=== PATIENT | male | born 1970 | race African-American/Black ===

== ENCOUNTER 2018-01-06 12:46 | Inpatient (IN) | payer MEDICAID ==
[~2018-01-06] VITALS: Ht 180.3 cm; Wt 81.0 kg
[2018-01-06] VITALS (8 sets, daily range): BP systolic 164–226; BP diastolic 93–128; PULSE 75–96; RESP 16–18; TEMP 97.9–98.5; O2SAT 97–100
[2018-01-06] MEDS ORDERED: LABETALOL HCL 100 MG/20 ML VIAL IV PUSH ONE (13:45)
--- NOTE | 2018-01-06 13:48 | RADRPT ---
EXAM DATE: 01/06/2018 1:36 PM EDT AGE/SEX: 47 years / Male INDICATIONS: Short of breath. CLINICAL DATA: This is the patient's initial encounter. Patient reports that signs and symptoms have been present for 1 day and indicates a pain score of 0/10. MEDICAL/SURGICAL HISTORY: . high blood pressure, diabetic None. COMPARISON: No prior exams available for comparison. FINDINGS: A single AP view of the chest demonstrates the lungs to be symmetrically aerated without evidence of mass, infiltrate or effusion. The cardiomediastinal contours are unremarkable. Osseous structures a re intact. CONCLUSION: No acute cardiopulmonary process. Electronically signed by: Hari Rosen MD 01/06/2018 1:47 PM EDT
[2018-01-06 13:49] LABS: AUTOMATED NEUTROPHIL # 4.3 TH/MM3 (1.8-7.7); BASOPHIL % 0.6 % (0.0-2.0); EOSINOPHIL # 0.1 TH/MM3 (0-0.4); EOSINOPHIL % 1.4 % (0.0-4.0); HEMOGLOBIN 11.8 GM/DL (13.0-17.0); LYMPH % 23.3 % (9.0-44.0); LYMPHOCYTE # 1.4 TH/MM3 (1.0-4.8); MEAN CORPUSCULAR HEMOGLOBIN 26.4 PG (27.0-34.0); MEAN CORPUSCULAR HGB CONC 32.9 % (32.0-36.0); MEAN PLATELET VOLUME 8.4 FL (7.0-11.0); MONO % 4.8 % (0.0-8.0); MONOCYTE # 0.3 TH/MM3 (0-0.9); NEUT % 69.9 % (16.0-70.0); PLATELET COUNT 267 TH/MM3 (150-450); RED BLOOD COUNT 4.49 MIL/MM3 (4.50-5.90); RED CELL DISTRIBUTION WIDTH 12.9 % (11.6-17.2); WHITE BLOOD COUNT 6.2 TH/MM3 (4.0-11.0)
--- NOTE | 2018-01-06 14:00 | PD ---
HPI Chief Complaint: Hypertension Time Seen by Provider: 13:05 Travel History International Travel<30 days: No Contact w/Intl Traveler<30days: No Traveled to known affect area: No History of Present Illness HPI 47-year-old male that presents to the ED for evaluation of hypertension and blurry vision as well as possible diabetes. Per patient has been having blurry vision for about 1 month. Per patient he went to an eye doctor 2 days ago and the eye doctor recommended that he follows with primary care doctor as apparently his blood pressure was elevated and he suspected that his sugars were also elevated. He cannot do anything for him until this was addressed. He apparently went to an urgent care today and urgent care person told him to come here to get evaluated as his blood pressure was still very high. Apparently blood pressure over there was in the 230 systolic and was given to clonidine 0.2 mg with minimal improvement of the blood pressure. Patient complains of no chest pain but does complain of some shortness of breath with exertion when he exerts himself. He attributes this more to working a lot. He is also noted that his legs have been becoming more swollen for the past 3 weeks. No injury or trauma. No recent travel. No pain with it. She denies any chest pain per se. He states that he was diagnosed with high sugars in the past and took medication for it but per patient he took himself out of the medication as he felt like he was getting better and his sugars were under control. Unclear if he did discuss this with his doctor before he did this. Apparently he has not really had much medical care since. He used to be on blood pressure medications in the past as well but has not taken any. He has no allergies to medication. No other medical issues. No back or neck pain. States no loss of vision but blurry vision. PFSH Past Medical History Diabetes: Yes Patient Takes Glucophage: No Hypertension: Yes Past Surgical History Surgical History: No Previous Surgery Social History Alcohol Use: No Tobacco Use: No Substance Use: No Allergies-Medications (Allergen,Severity, Reaction): Coded Allergies: No Known Allergies (Unverified , 01/06/18) Review of Systems Except as stated in HPI: all other systems reviewed are Neg Physical Exam Narrative GENERAL: SKIN: Warm and dry. HEAD: Atraumatic. Normocephalic. EYES: Pupils equal and round. No scleral icterus. No injection or drainage. ENT: No nasal bleeding or discharge. Mucous membranes pink and moist. Tongue is midline. No uvula deviation NECK: Trachea midline. No JVD. CARDIOVASCULAR: Regular rate and rhythm. No murmurs, S3, S4. RESPIRATORY: No accessory muscle use. Clear to auscultation. Breath sounds equal bilaterally. GASTROINTESTINAL: Abdomen soft, non-tender, nondistended. Hepatic and splenic margins not palpable. MUSCULOSKELETAL: Extremities without clubbing, cyanosis, or edema. No obvious deformities. Full range of motion of the upper and lower extremities bilaterally. 2+ pulses bilaterally. Patient does have 2+ pitting edema on the lower extremities bilaterally. NEUROLOGICAL: Awake and alert. No obvious cranial nerve deficits. Motor grossly within normal limits. Five out of 5 muscle strength in the arms and legs. Normal speech. PSYCHIATRIC: Appropriate mood and affect; insight and judgment normal. Data Data Last Documented VS Vital Signs Date Time Temp Pulse Resp B/P (MAP) Pulse Ox O2 Delivery O2 Flow Rate FiO2 01/06/18 14:24 80 18 181/103 (129) 100 Room Air 01/06/18 13:19 98.5 Orders Orders Electrocardiogram (01/06/18 13:15) Complete Blood Count With Diff (01/06/18 13:15) Basic Metabolic Panel (Bmp) (01/06/18 13:15) Ckmb (Isoenzyme) Profile (01/06/18 13:15) Troponin I (01/06/18 13:15) B-Type Natriuretic Peptide (01/06/18 13:15) Magnesium (Mg) (01/06/18 13:15) Thyroid Stimulating Hormone (01/06/18 13:15) Chest, Single Ap (01/06/18 13:15) Iv Access Insert/Monitor (01/06/18 13:15) Ecg Monitoring (01/06/18 13:15) Oximetry (01/06/18 13:15) Us Leg Venous Doppler Bilat (01/06/18 ) Labetalol Inj (Trandate Inj) (01/06/18 13:45) CKMB (01/06/18 13:30) CKMB% (01/06/18 13:30) Aspirin (Aspirin) (01/06/18 14:15) Admit Order (Ed Use Only) (01/06/18 14:58) Labs Laboratory Tests Test 01/06/18 13:30 White Blood Count 6.2 TH/MM3 Red Blood Count 4.49 MIL/MM3 Hemoglobin 11.8 GM/DL Hematocrit 36.0 % Mean Corpuscular Volume 80.0 FL Mean Corpuscular Hemoglobin 26.4 PG Mean Corpuscular Hemoglobin Concent 32.9 % Red Cell Distribution Width 12.9 % Platelet Count 267 TH/MM3 Mean Platelet Volume 8.4 FL Neutrophils (%) (Auto) 69.9 % Lymphocytes (%) (Auto) 23.3 % Monocytes (%) (Auto) 4.8 % Eosinophils (%) (Auto) 1.4 % Basophils (%) (Auto) 0.6 % Neutrophils # (Auto) 4.3 TH/MM3 Lymphocytes # (Auto) 1.4 TH/MM3 Monocytes # (Auto) 0.3 TH/MM3 Eosinophils # (Auto) 0.1 TH/MM3 Basophils # (Auto) 0.0 TH/MM3 CBC Comment DIFF FINAL Differential Comment Blood Urea Nitrogen 21 MG/DL Creatinine 1.89 MG/DL Random Glucose 211 MG/DL Calcium Level 8.5 MG/DL Magnesium Level 2.0 MG/DL Sodium Level 142 MEQ/L Potassium Level 3.3 MEQ/L Chloride Level 107 MEQ/L Carbon Dioxide Level 29.1 MEQ/L Anion Gap 6 MEQ/L Estimat Glomerular Filtration Rate 38 ML/MIN Total Creatine Kinase 114 U/L Creatine Kinase MB 2.1 NG/ML Troponin I 0.20 NG/ML Thyroid Stimulating Hormone 3rd Gen 0.838 uIU/ML MDM Medical Decision Making Medical Screen Exam Complete: Yes Emergency Medical Condition: Yes Medical Record Reviewed: Yes Interpretation(s) CBC & BMP Diagram 01/06/18 13:30 Calcium Level 8.5, Magnesium Level 2.0 Last Impressions Chest X-Ray 01/06/18 1315 Signed Impressions: CONCLUSION: No acute cardiopulmonary process. Lower Extremity Ultrasound 01/06/18 0000 Signed Impressions: CONCLUSION: No DVT. troponin elevated at 0.20 CK negative EKG shows sinus rhythm with no sign of acute ischemia and arrhythmia read by me and attending. Differential Diagnosis Diabetes versus noncompliant diabetic versus hypertensive urgency versus hypertensive crisis versus CHF versus DVTs versus pitting edema versus ACS Narrative Course 47-year-old male who presents to the ED for evaluation of high blood pressure, lower leg edema, possible diabetic, blurred vision. Patient was properly examined and was found to have signs and symptoms of unclear etiology. BP is definitely elevated even after given clonidine 2 in the urgent care. At this time patient will be started on IV labetalol as well as labs and imaging will be ordered. Ultrasound was ordered. We will check sugars. Labs and imaging showed positive troponin. Elevated blood sugars while in the 200s. This time her condition is for admission further evaluation as patient has never had positive troponin and no history of heart disease. I suspect positive troponin may be related more to the elevated blood pressure. Patient's blood pressure became down with labetalol. My attending recommends admission for further evaluation. Dr. Han evaluated the patient herself. Patient has no chest pain but he was still given aspirin. He will need further cardiac workup. He agrees to admission. Case discussed with Dr. Bruner who agrees to admission to his service. Diagnosis Primary Impression: Hypertensive emergency Additional Impressions: Elevated troponin I level Diabetes Qualified Codes: E11.8 - Type 2 diabetes mellitus with unspecified complications Admitting Information Admitting Physician Requests: Admit Hardeep Rodriguez Jan 06, 2018 14:00
[2018-01-06 14:04] LABS: BICARBONATE 29.1 MEQ/L (21.0-32.0); BLOOD UREA NITROGEN 21 MG/DL (7-18); CALCIUM 8.5 MG/DL (8.5-10.1); CHLORIDE 107 MEQ/L (98-107); CREATININE 1.89 MG/DL (0.60-1.30); GLOMERULAR FILTRATION RATE 38 ML/MIN (>89); GLUCOSE,RANDOM 211 MG/DL (74-106); SODIUM (NA) 142 MEQ/L (136-145)
[2018-01-06] MEDS ORDERED: ASPIRIN 325 MG TAB PO ONE (14:15)
--- NOTE | 2018-01-06 14:31 | RADRPT ---
EXAM DATE: 01/06/2018 2:28 PM EDT AGE/SEX: 47 years / Male INDICATIONS: Bilateral leg swelling. CLINICAL DATA: This is the patient's initial encounter. Patient reports that signs and symptoms have been present for 1 day and indicates a pain score of 1/10. MEDICAL/SURGICAL HISTORY: Hypertension. Diabetes. None. COMPARISON: No prior exams available for comparison. TECHNIQUE: Venous ultrasound of both lower extremities was performed from the inguinal ligament to t he proximal calf. Real-time, color Doppler and spectral tracing, compression and augmentation techni ques were used. FINDINGS: Right Leg: Normal compression of the deep venous system from the inguinal region to the proximal sera f. No echogenic clot is seen. Normal response of the venous system to augmentation and respiration. Left Leg: Normal compression of the deep venous system from the inguinal region to the proximal calf . No echogenic clot is seen. Normal response of the venous system to augmentation and respiration. Other: None. CONCLUSION: No DVT. Electronically signed by: Hari Rosen MD 01/06/2018 2:30 PM EDT
--- NOTE | 2018-01-06 14:40 | PD ---
Physical Exam Date Seen by Provider: Jan 06, 2018 Narrative This patient presents for evaluation of hypertension and diabetes. He has a history of both but is noncompliant with medications. Data Data Last Documented VS Vital Signs Date Time Temp Pulse Resp B/P (MAP) Pulse Ox O2 Delivery O2 Flow Rate FiO2 01/06/18 14:24 80 18 181/103 (129) 100 Room Air 01/06/18 13:19 98.5 Orders Orders Electrocardiogram (01/06/18 13:15) Complete Blood Count With Diff (01/06/18 13:15) Basic Metabolic Panel (Bmp) (01/06/18 13:15) Ckmb (Isoenzyme) Profile (01/06/18 13:15) Troponin I (01/06/18 13:15) B-Type Natriuretic Peptide (01/06/18 13:15) Magnesium (Mg) (01/06/18 13:15) Thyroid Stimulating Hormone (01/06/18 13:15) Chest, Single Ap (01/06/18 13:15) Iv Access Insert/Monitor (01/06/18 13:15) Ecg Monitoring (01/06/18 13:15) Oximetry (01/06/18 13:15) Us Leg Venous Doppler Bilat (01/06/18 ) Labetalol Inj (Trandate Inj) (01/06/18 13:45) CKMB (01/06/18 13:30) CKMB% (01/06/18 13:30) Aspirin (Aspirin) (01/06/18 14:15) Labs Laboratory Tests Test 01/06/18 13:30 White Blood Count 6.2 TH/MM3 Red Blood Count 4.49 MIL/MM3 Hemoglobin 11.8 GM/DL Hematocrit 36.0 % Mean Corpuscular Volume 80.0 FL Mean Corpuscular Hemoglobin 26.4 PG Mean Corpuscular Hemoglobin Concent 32.9 % Red Cell Distribution Width 12.9 % Platelet Count 267 TH/MM3 Mean Platelet Volume 8.4 FL Neutrophils (%) (Auto) 69.9 % Lymphocytes (%) (Auto) 23.3 % Monocytes (%) (Auto) 4.8 % Eosinophils (%) (Auto) 1.4 % Basophils (%) (Auto) 0.6 % Neutrophils # (Auto) 4.3 TH/MM3 Lymphocytes # (Auto) 1.4 TH/MM3 Monocytes # (Auto) 0.3 TH/MM3 Eosinophils # (Auto) 0.1 TH/MM3 Basophils # (Auto) 0.0 TH/MM3 CBC Comment DIFF FINAL Differential Comment Blood Urea Nitrogen 21 MG/DL Creatinine 1.89 MG/DL Random Glucose 211 MG/DL Calcium Level 8.5 MG/DL Magnesium Level 2.0 MG/DL Sodium Level 142 MEQ/L Potassium Level 3.3 MEQ/L Chloride Level 107 MEQ/L Carbon Dioxide Level 29.1 MEQ/L Anion Gap 6 MEQ/L Estimat Glomerular Filtration Rate 38 ML/MIN Total Creatine Kinase 114 U/L Creatine Kinase MB 2.1 NG/ML Troponin I 0.20 NG/ML Thyroid Stimulating Hormone 3rd Gen 0.838 uIU/ML MDM Supervised Visit with KATHLEEN: Yes Narrative Course I, Dr. Han, have reviewed the advance practice practitioner's documentation and am in agreement, met with the patient face to face, made the diagnosis, and the medical decision making was done by me. *My assessment and Findings: Vital Signs Date Time Temp Pulse Resp B/P (MAP) Pulse Ox O2 Delivery O2 Flow Rate FiO2 01/06/18 14:24 80 18 181/103 (129) 100 Room Air 01/06/18 13:19 91 18 96 Room Air 01/06/18 13:19 98.5 91 18 218/125 (156) 97 Room Air 01/06/18 12:52 97.9 96 16 226/128 (160) 99 CBC & BMP Diagram 01/06/18 13:30 Calcium Level 8.5, Magnesium Level 2.0 trop 0.20 This patient will need to be admitted for further evaluation. His troponin could be elevated secondary to renal insufficiency. Mali Han MD Jan 06, 2018 14:40
[2018-01-06] MEDS ORDERED: NALOXONE HCL 0.4 MG/ML AMP IV PUSH PRN (15:30)
[2018-01-06] MEDS ORDERED: SODIUM CHLORIDE 0.9% FLUSH 10 ML FLUSH IV FLUSH PRN (15:30)
[2018-01-06] MEDS ORDERED: NIFEdipine 30 MG SUSTAINED RELEASE TAB PO ONE (15:30)
[2018-01-06] MEDS ORDERED: POTASSIUM CHLORIDE 20 MEQ CONTROLLED RELEASE TAB PO ONE (15:30)
[2018-01-06] MEDS ORDERED: DEXTROSE 50% IN WATER 50 ML VIAL(D50) IV PUSH PRN (15:30)
[2018-01-06] MEDS ORDERED: ACETAMINOPHEN 325 MG TAB PO PRN ×2 (15:30)
[2018-01-06] MEDS ORDERED: GLUCAGON 1 MG/ML VIAL OTHER PRN (15:30)
--- NOTE | 2018-01-06 15:43 | HHI.HP ---
[facility] Unknown Admission Diagnosis hypertensive emergency, positive troponin, NSTEMI? Diagnoses: Chief Complaint: Vision changes Travel History International Travel<30 Days: No Contact w/Intl Traveler <30 Da: No Traveled to Known Affected Are: No History of Present Illness The patient is a 47-year-old male the past medical history of diabetes and hypertension who is presenting to the hospital with vision changes. He says for the past month or so he has experienced blurry vision, worse in the left eye. He says his right eye has been acting up over the past 2 days. He denies any associated headaches. He went to an eye doctor yesterday who diagnosed him with diabetic retinopathy. He went to an urgent care clinic today who referred him to the hospital for further evaluation. The patient's blood pressure has been very high while he was in the doctor's offices. He has been on blood pressure medications in the past including lisinopril and hydrochlorothiazide. He has also been on diabetic medication in the past. The patient states his legs have been swollen for the past 2 weeks. He says it has happened to him in the past as well. He denies any chest pain or shortness of breath. He does endorse feeling tired when he undergoes activities. He says he has had a heart murmur since childhood. He says he does not typically see doctors. He has not been taking any medications recently. He said the urgent care also diagnosed him with a sinusitis. Review of Systems Except as stated in HPI: all other systems reviewed are Neg Past Family Social History Past Medical History Diabetes Hypertension Past Surgical History Denies Allergies: Coded Allergies: No Known Allergies (Unverified , 01/06/18) Family History DM HTN Social History The pt does not smoke. He has rare alcohol intake. Physical Exam Vital Signs Vital Signs Date Time Temp Pulse Resp B/P (MAP) Pulse Ox O2 Delivery O2 Flow Rate FiO2 01/06/18 14:24 80 18 181/103 (129) 100 Room Air 01/06/18 13:19 91 18 96 Room Air 01/06/18 13:19 98.5 91 18 218/125 (156) 97 Room Air 01/06/18 12:52 97.9 96 16 226/128 (160) 99 Physical Exam GENERAL: Resting comfortably. SKIN: Warm and dry. HEAD: Atraumatic. Normocephalic. EYES: Pupils equal and round. No scleral icterus. No injection or drainage. ENT: No nasal bleeding or discharge. Mucous membranes pink and moist. Tongue is midline. No uvula deviation NECK: Trachea midline. No JVD. CARDIOVASCULAR: Regular rate and rhythm. Harsh systolic murmur appreciated in the LLSB. RESPIRATORY: No accessory muscle use. Clear to auscultation. Breath sounds equal bilaterally. GASTROINTESTINAL: Abdomen soft, non-tender, nondistended. Hepatic and splenic margins not palpable. MUSCULOSKELETAL: Extremities without clubbing, cyanosis. 2+ pulses bilaterally. Patient does have 1-2+ pitting edema on the lower extremities bilaterally. NEUROLOGICAL: Awake and alert. No obvious cranial nerve deficits. Motor grossly within normal limits. Five out of 5 muscle strength in the arms and legs. Normal speech. Laboratory Laboratory Tests Test 01/06/18 13:30 White Blood Count 6.2 Red Blood Count 4.49 Hemoglobin 11.8 Hematocrit 36.0 Mean Corpuscular Volume 80.0 Mean Corpuscular Hemoglobin 26.4 Mean Corpuscular Hemoglobin Concent 32.9 Red Cell Distribution Width 12.9 Platelet Count 267 Mean Platelet Volume 8.4 Neutrophils (%) (Auto) 69.9 Lymphocytes (%) (Auto) 23.3 Monocytes (%) (Auto) 4.8 Eosinophils (%) (Auto) 1.4 Basophils (%) (Auto) 0.6 Neutrophils # (Auto) 4.3 Lymphocytes # (Auto) 1.4 Monocytes # (Auto) 0.3 Eosinophils # (Auto) 0.1 Basophils # (Auto) 0.0 CBC Comment DIFF FINAL Differential Comment Blood Urea Nitrogen 21 Creatinine 1.89 Random Glucose 211 Calcium Level 8.5 Magnesium Level 2.0 Sodium Level 142 Potassium Level 3.3 Chloride Level 107 Carbon Dioxide Level 29.1 Anion Gap 6 Estimat Glomerular Filtration Rate 38 Total Creatine Kinase 114 Creatine Kinase MB 2.1 Troponin I 0.20 Thyroid Stimulating Hormone 3rd Gen 0.838 Result Diagram: 01/06/18 1330 01/06/18 1330 Imaging Last Impressions Chest X-Ray 01/06/18 1315 Signed Impressions: CONCLUSION: No acute cardiopulmonary process. Lower Extremity Ultrasound 01/06/18 0000 Signed Impressions: CONCLUSION: No DVT. Caprini VTE Risk Assessment Caprini VTE Risk Assessment: Mod/High Risk (score >= 2) Caprini Risk Assessment Model Point Value = 1 Point Value = 2 Point Value = 3 Point Value = 5 Age 41-60 Minor surgery BMI > 25 kg/m2 Swollen legs Varicose veins or History of unexplained or recurrent spontaneous Oral contraceptives or hormone replacement Sepsis (< 1 month) Serious lung disease, including pneumonia (< 1 month) Abnormal pulmonary function Acute myocardial infarction Congestive heart failure (< 1 month) History of inflammatory bowel disease Medical patient at bed rest Age 61-74 Arthroscopic surgery Major open surgery (> 45 min) Laparoscopic surgery (> 45 min) Malignancy Confined to bed (> 72 hours) Immobilizing plaster cast Central venous access Age >= 75 History of VTE Family history of VTE Factor V Leiden Prothrombin [id number] Lupus anticoagulant Anticardiolipin antibodies Elevated serum homocysteine Heparin-induced thrombocytopenia Other congenital or acquired thrombophilia Stroke (< 1 month) Elective arthroplasty Hip, pelvis, or leg fracture Acute spinal cord injury (< 1 month) Prophylaxis Regimen Total Risk Factor Score Risk Level Prophylaxis Regimen 0-1 Low Early ambulation 2 Moderate Order ONE of the following: *Sequential Compression Device (SCD) *Heparin 5000 units SQ BID 3-4 Higher Order ONE of the following medications: *Heparin 5000 units SQ TID *Enoxaparin/Lovenox 40 mg SQ daily (WT < 150 kg, CrCl > 30 mL/min) *Enoxaparin/Lovenox 30 mg SQ daily (WT < 150 kg, CrCl > 10-29 mL/min) *Enoxaparin/Lovenox 30 mg SQ BID (WT < 150 kg, CrCl > 30 mL/min) AND/OR *Sequential Compression Device (SCD) 5 or more Highest Order ONE of the following medications: *Heparin 5000 units SQ TID (Preferred with Epidurals) *Enoxaparin/Lovenox 40 mg SQ daily (WT < 150 kg, CrCl > 30 mL/min) *Enoxaparin/Lovenox 30 mg SQ daily (WT < 150 kg, CrCl > 10-29 mL/min) *Enoxaparin/Lovenox 30 mg SQ BID (WT < 150 kg, CrCl > 30 mL/min) AND *Sequential Compression Device (SCD) Assessment and Plan Assessment and Plan Hypertensive emergency/ elevated troponin/ leg swelling The pt's blood pressure has been elevated over 200. He has had associated blurry vision. Troponin elevated at 0.2. EKG without acute ischemia. S/p IV labetalol in the ED. LE US negative for DVT. - start Procardia XL 60 mg daily. - clonidine as needed. - echocardiogram pending. - ezio stockings. - trend trops and EKGs. - telemetry. - dietary consult. - check a lipid profile. DM/ blurry vision Recently diagnosed with diabetic retinopathy. - start insulin sliding scale. - check A1c. - consult software educator. Acute renal failure Likely s/t underlying HTN, DM or both. - check UA. - calculate FENa. - renal US. - hold off on fluids until cardiac function has been assessed. Hypokalemia K level 3.3. - KCl 20 meq PO x 1. PPx: Heparin Discussed Condition With PtIgor Physician Certification 2 Midnight Certification Type: Admission for Inpatient Services Order for Inpatient Services The services are ordered in accordance with Medicare regulations or non- Medicare payer requirements, as applicable. In the case of services not specified as inpatient-only, they are appropriately provided as inpatient services in accordance with the 2-midnight benchmark. Estimated LOS (days): 2 days is the estimated time the patient will need to remain in the hospital, assuming treatment plan goals are met and no additional complications. Post-Hospital Plan: Home Reji Bruner DO Jan 06, 2018 15:43
[2018-01-06] MEDS: HEPARIN SODIUM - SQ 10,000 UNITS/ML VIAL SQ SCH (16:00)
[2018-01-06] MEDS: INSULIN ASPART SUPPLEMENTAL SCALE SQ SCH ×2 (17:00→22:49)
[2018-01-06 17:25] LABS: HEMOGLOBIN A1C 5.7 % (4.3-6.0)
--- NOTE | 2018-01-06 18:35 | RADRPT ---
EXAM DATE: 01/06/2018 6:30 PM EDT AGE/SEX: 47 years / Male INDICATIONS: Increased BUN/Creatnine. CLINICAL DATA: This is the patient's initial encounter. Patient reports that signs and symptoms have been present for 1 day and indicates a pain score of 0/10. MEDICAL/SURGICAL HISTORY: . Hypertension. Diabetes. None. COMPARISON: None. MEASUREMENTS: Right Kidney:__12.2 x 6.1 x 4.3 cm Left Kidney:__12.4 x 5.5 x 5.7 cm FINDINGS: Right Kidney: Hyperechoic. 9 mm simple cyst exophytic from the lower pole. No mass or hydronephrosis. Left Kidney: Hyperechoic.. No mass or hydronephrosis. Bladder: Within normal limits given the degree of distension. Other: Left pleural effusion. CONCLUSION: 1. Sonographic findings consistent with medical renal disease. No obstruction. 2. Left pleural effusion. Electronically signed by: Kin Troy MD 01/06/2018 6:34 PM EDT
[2018-01-06] MEDS: SODIUM CHLORIDE 0.9% FLUSH 10 ML FLUSH IV FLUSH SCH (21:44)
[2018-01-06 21:56] LABS: CHOLESTEROL/ HDL RATIO 4.57 RATIO; HDL CHOLESTEROL 38.9 MG/DL (40.0-60.0); TROPONIN I 0.16 NG/ML (0.02-0.05)
[2018-01-06 22:13] LABS: CREATININE, RANDOM URINE 158.7 MG/DL
[2018-01-06 22:16] LABS: BACTERIA, URINE OCC /hpf; BILIRUBIN, URINE NEG (NEG); BLOOD, URINE MOD (NEG); GLUCOSE,URINE 50 mg/dL (NEG); HYALINE CAST, URINE 3 /lpf (RARE); KETONE, URINE NEG (NEG); MUCUS URINE FEW /lpf (OCC); NITRITE,URINE NEG (NEG); SQUAMOUS EPITHELIAL CELL URINE <1 /hpf (0-5); URINE COLOR Amber (YELLW/STRAW); URINE LEUKOCYTE ESTERASE NEG (NEG)
[2018-01-07] VITALS (8 sets, daily range): BP systolic 157–195; BP diastolic 10–104; PULSE 85–101; RESP 16–18; TEMP 97.8–98.4; O2SAT 97–99
[2018-01-07 07:50] LABS: AUTOMATED NEUTROPHIL # 3.8 TH/MM3 (1.8-7.7); BASOPHIL % 0.4 % (0.0-2.0); EOSINOPHIL # 0.1 TH/MM3 (0-0.4); EOSINOPHIL % 2.2 % (0.0-4.0); HEMOGLOBIN 11.3 GM/DL (13.0-17.0); LYMPHOCYTE # 1.6 TH/MM3 (1.0-4.8); MEAN CELL VOLUME 79.6 FL (80.0-100.0); MEAN CORPUSCULAR HEMOGLOBIN 27.2 PG (27.0-34.0); MEAN CORPUSCULAR HGB CONC 34.1 % (32.0-36.0); MEAN PLATELET VOLUME 8.3 FL (7.0-11.0); MONO % 5.9 % (0.0-8.0); MONOCYTE # 0.3 TH/MM3 (0-0.9); NEUT % 64.5 % (16.0-70.0); PLATELET COUNT 252 TH/MM3 (150-450); RED BLOOD COUNT 4.14 MIL/MM3 (4.50-5.90); RED CELL DISTRIBUTION WIDTH 12.9 % (11.6-17.2); WHITE BLOOD COUNT 5.9 TH/MM3 (4.0-11.0)
[2018-01-07] MEDS: INSULIN ASPART SUPPLEMENTAL SCALE SQ SCH ×4 (08:00→21:00)
[2018-01-07 08:26] LABS: ALBUMIN 2.4 GM/DL (3.4-5.0); AST (GOT) 15 U/L (15-37); BICARBONATE 29.5 MEQ/L (21.0-32.0); BLOOD UREA NITROGEN 21 MG/DL (7-18); CALCIUM 8.5 MG/DL (8.5-10.1); CHLORIDE 110 MEQ/L (98-107); GLOMERULAR FILTRATION RATE 49 ML/MIN (>89); GLUCOSE,RANDOM 120 MG/DL (74-106); SODIUM (NA) 146 MEQ/L (136-145)
[2018-01-07 08:29] LABS: ALKALINE PHOSPHATASE 61 U/L (45-117); ALT (GPT) 27 U/L (12-78); TOTAL BILIRUBIN ADULT 0.5 MG/DL (0.2-1.0); TOTAL PROTEIN 5.4 GM/DL (6.4-8.2)
[2018-01-07] MEDS: NIFEdipine 60 MG SUSTAINED RELEASE TAB PO SCH (08:33)
[2018-01-07] MEDS: HEPARIN SODIUM - SQ 10,000 UNITS/ML VIAL SQ SCH ×4 (08:34→23:24)
[2018-01-07] MEDS: SODIUM CHLORIDE 0.9% FLUSH 10 ML FLUSH IV FLUSH SCH ×2 (08:34→23:21)
--- NOTE | 2018-01-07 09:20 | EKG ---
Date Performed: 01/06/2018 Time Performed: 14:25:21 PTAGE: 47 years EKG: Sinus rhythm LEFT ATRIAL ENLARGEMENT LEFT VENTRICULAR HYPERTROPHY AND ST-T CHANGE ABNORMAL ECG NO PREVIOUS TRACING DOCTOR: Da Caldera Interpretating Date/Time 01/07/2018 09:15:13
--- NOTE | 2018-01-07 09:21 | EKG ---
Date Performed: 01/07/2018 Time Performed: 01:34:34 PTAGE: 47 years EKG: Sinus rhythm Possible left atrial abnormality LVH with secondary repolarization abnormality Inferior/lateral ST-T changes may be due to hypertrophy and/or ischemia Abnormal ECG Since the PREVIOUS TRACING , no significant change noted PREVIOUS TRACING DOCTOR: Da Caldera Interpretating Date/Time 01/07/2018 09:16:24
--- NOTE | 2018-01-07 09:22 | EKG ---
Date Performed: 01/06/2018 Time Performed: 19:39:20 PTAGE: 47 years EKG: Sinus rhythm POSSIBLE LEFT ATRIAL ENLARGEMENT LEFT VENTRICULAR HYPERTROPHY AND ST-T CHANGE ABNORMAL ECG Since the PREVIOUS TRACING , no significant change noted PREVIOUS TRACIN01/06/2018 14.25 DOCTOR: Da Caldera Interpretating Date/Time 01/07/2018 09:16:44
[2018-01-07] MEDS: hydrALAZINE HCL 25 MG TAB PO SCH ×3 (09:31→23:24)
[2018-01-07] MEDS: CARVEDILOL 6.25 MG TAB PO SCH ×2 (09:31→23:23)
[2018-01-07] MEDS: cloNIDine HCL 0.1 MG TAB PO PRN (13:37)
--- NOTE | 2018-01-07 14:16 | HHI.PR ---
Subjective Remarks The patient is a 47-year-old male the past medical history of diabetes and hypertension who is presenting to the hospital with vision changes. He says for the past month or so he has experienced blurry vision, worse in the left eye. He says his right eye has been acting up over the past 2 days. He denies any associated headaches. He went to an eye doctor yesterday who diagnosed him with diabetic retinopathy. He went to an urgent care clinic today who referred him to the hospital for further evaluation. The patient's blood pressure has been very high while he was in the doctor's offices. He has been on blood pressure medications in the past including lisinopril and hydrochlorothiazide. He has also been on diabetic medication in the past. The patient states his legs have been swollen for the past 2 weeks. He says it has happened to him in the past as well. He denies any chest pain or shortness of breath. He does endorse feeling tired when he undergoes activities. He says he has had a heart murmur since childhood. He says he does not typically see doctors. He has not been taking any medications recently. He said the urgent care also diagnosed him with a sinusitis. 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 WEEKEND WILL NEED HELP WITH MEDS AND FOLLOW UPS WILL NEED RX AT DC Objective Vitals Vital Signs Date Time Temp Pulse Resp B/P (MAP) Pulse Ox O2 Delivery O2 Flow Rate FiO2 01/07/18 13:16 97 21 01/07/18 12:00 98.2 101 16 195/101 (132) 98 01/07/18 08:26 88 01/07/18 08:00 97.8 86 18 182/104 (130) 97 01/07/18 08:00 97 Room Air 01/07/18 03:59 92 01/07/18 03:53 Room Air 01/07/18 03:53 98.1 85 16 176/89 (118) 97 01/06/18 23:51 76 01/06/18 23:17 98.0 82 16 164/93 (116) 97 01/06/18 23:17 Room Air 01/06/18 20:28 Room Air 01/06/18 20:28 97.9 83 16 174/97 (122) 99 01/06/18 19:56 21 01/06/18 19:43 78 01/06/18 15:44 75 18 169/94 (119) 98 Room Air 01/06/18 14:24 80 18 181/103 (129) 100 Room Air I/O 01/06/18 01/06/18 01/06/18 01/07/18 01/07/18 01/07/18 07:00 15:00 23:00 07:00 15:00 23:00 Intake Total 720 ml Balance 720 ml Intake Oral 720 ml # Voids 3 # Bowel Movements 0 Result Diagram: 01/07/18 0659 01/07/18 0659 Other Results Laboratory Tests Test 01/06/18 20:07 01/06/18 21:05 01/07/18 01:17 01/07/18 06:59 Troponin I 0.16 NG/ML 0.18 NG/ML Triglycerides Level 156 MG/DL Cholesterol Level 178 MG/DL LDL Cholesterol 108 MG/DL HDL Cholesterol 38.9 MG/DL Cholesterol/HDL Ratio 4.57 RATIO Urine Color Laura Urine Turbidity HAZY Urine pH 5.0 Urine Specific [place] 1.015 Urine Protein >=500 mg/dL Urine Glucose (UA) 50 mg/dL Urine Ketones NEG mg/dL Urine Occult Blood MOD Urine Nitrite NEG Urine Bilirubin NEG Urine Urobilinogen LESS THAN 2 mg/dL Urine Leukocyte Esterase NEG Urine RBC 9 /hpf Urine WBC 4 /hpf Urine Squamous Epithelial Cells <1 /hpf Urine Bacteria OCC /hpf Urine Hyaline Casts 3 /lpf Urine Mucus FEW /lpf Microscopic Urinalysis Comment CULT NOT INDICATED Urine Random Creatinine 158.7 MG/DL Urine Random Sodium 41 MEQ/L White Blood Count 5.9 TH/MM3 Red Blood Count 4.14 MIL/MM3 Hemoglobin 11.3 GM/DL Hematocrit 33.0 % Mean Corpuscular Volume 79.6 FL Mean Corpuscular Hemoglobin 27.2 PG Mean Corpuscular Hemoglobin Concent 34.1 % Red Cell Distribution Width 12.9 % Platelet Count 252 TH/MM3 Mean Platelet Volume 8.3 FL Neutrophils (%) (Auto) 64.5 % Lymphocytes (%) (Auto) 27.0 % Monocytes (%) (Auto) 5.9 % Eosinophils (%) (Auto) 2.2 % Basophils (%) (Auto) 0.4 % Neutrophils # (Auto) 3.8 TH/MM3 Lymphocytes # (Auto) 1.6 TH/MM3 Monocytes # (Auto) 0.3 TH/MM3 Eosinophils # (Auto) 0.1 TH/MM3 Basophils # (Auto) 0.0 TH/MM3 CBC Comment DIFF FINAL Differential Comment Blood Urea Nitrogen 21 MG/DL Creatinine 1.80 MG/DL Random Glucose 120 MG/DL Total Protein 5.4 GM/DL Albumin 2.4 GM/DL Calcium Level 8.5 MG/DL Alkaline Phosphatase 61 U/L Aspartate Amino Transf (AST/SGOT) 15 U/L Alanine Aminotransferase (ALT/SGPT) 27 U/L Total Bilirubin 0.5 MG/DL Sodium Level 146 MEQ/L Potassium Level 3.3 MEQ/L Chloride Level 110 MEQ/L Carbon Dioxide Level 29.5 MEQ/L Anion Gap 7 MEQ/L Estimat Glomerular Filtration Rate 49 ML/MIN Imaging Last Impressions Chest X-Ray 01/06/18 1315 Signed Impressions: CONCLUSION: No acute cardiopulmonary process. Renal Ultrasound 01/06/18 0000 Signed Impressions: CONCLUSION: 1. Sonographic findings consistent with medical renal disease. No obstruction. 2. Left pleural effusion. Lower Extremity Ultrasound 01/06/18 0000 Signed Impressions: CONCLUSION: No DVT. Objective Remarks GENERAL: AWAKE AND ALERT AND ORIENTED X3 TALKATIVE AND COOPERATIVE SKIN: Warm and dry. HEAD: Atraumatic. Normocephalic. EYES: Pupils equal and round. No scleral icterus. No injection or drainage. EOMI ENT: No nasal bleeding or discharge. Mucous membranes pink and moist. TONGUE MIDLINE NECK: Trachea midline. No JVD. SUPPLE CARDIOVASCULAR: Regular rate and rhythm. S1, S2, NO S3 OR S4 RESPIRATORY: No accessory muscle use. Clear to auscultation. Breath sounds equal bilaterally. GASTROINTESTINAL: Abdomen soft, non-tender, nondistended. Hepatic and splenic margins not palpable. MUSCULOSKELETAL: Extremities without clubbing, cyanosis, or edema. No obvious deformities. NEUROLOGICAL: Awake and alert. No obvious cranial nerve deficits. Motor grossly within normal limits. Five out of 5 muscle strength in the arms and legs. Normal speech. PSYCHIATRIC: Appropriate mood and affect; insight and judgment normal. Medications and IVs Current Medications Labetalol HCl (Trandate Inj) 5 mg ONCE ONCE IV PUSH Last administered on at 14:04; Start 01/06/18 at 13:45; Stop 01/06/18 at 13:46; Status DC Aspirin (Aspirin) 325 mg ONCE ONCE PO Last administered on 01/06/18at 14:31; Start 01/06/18 at 14:15; Stop 01/06/18 at 14:16; Status DC Potassium Chloride (KCl) 20 meq ONCE ONCE PO Last administered on 01/06/18at 15 :35; Start 01/06/18 at 15:30; Stop 01/06/18 at 15:31; Status DC Nifedipine (Procardia Xl) 60 mg DAILY PO Last administered on 01/07/18at 08:33; Start 01/07/18 at 09:00 Nifedipine (Procardia Xl) 30 mg ONCE ONCE PO Last administered on 01/06/18at 15 :35; Start 01/06/18 at 15:30; Stop 01/06/18 at 15:31; Status DC Insulin Aspart (NovoLOG SUPPLEMENTAL SCALE) 1 ACHS SLIDING SCALE SQ Last administered on 01/07/18at 12:50; Start 01/06/18 at 17:00 Dextrose (D50w (Vial) Inj) 50 ml UNSCH PRN IV PUSH HYPOGLYCEMIA - SEE COMMENTS ; Start 01/06/18 at 15:30 Glucagon (Glucagon Inj) 1 mg UNSCH PRN OTHER HYPOGLYCEMIA-SEE COMMENTS; Start 01/06/18 at 15:30 Sodium Chloride (NS Flush) 2 ml UNSCH PRN IV FLUSH FLUSH AFTER USING IV ACCESS ; Start 01/06/18 at 15:30 Sodium Chloride (NS Flush) 2 ml BID IV FLUSH Last administered on 01/07/18at 08: 34; Start 01/06/18 at 21:00 Acetaminophen (Tylenol) 650 mg Q4H PRN PO TEMP > 100.4; Start 01/06/18 at 15:30 Heparin Sodium (Porcine) (Heparin Inj) 5,000 units Q8H SQ Last administered on 01/07/18at 08:34; Start 01/06/18 at 16:00 Acetaminophen (Tylenol) 650 mg Q6H PRN PO PAIN SCALE 1 TO 2; Start 01/06/18 at 15:30 Naloxone HCl (Narcan Inj) 0.4 mg UNSCH PRN IV PUSH SEE LABEL COMMENTS; Start at 15:30 Clonidine (Catapres) 0.1 mg Q6H PRN PO SBP> OR = 180, DBP> OR = 100 Last administered on 01/07/18at 13:37; Start 01/06/18 at 15:30 Carvedilol (Coreg) 6.25 mg Q12HR PO Last administered on 01/07/18at 09:31; Start 01/07/18 at 09:15 Hydralazine HCl (Apresoline) 25 mg Q8HR PO Last administered on 01/07/18at 13:35 ; Start 01/07/18 at 09:15 A/P Assessment and Plan Hypertensive emergency/ elevated troponin/ leg swelling The pt's blood pressure has been elevated over 200. He has had associated blurry vision. Troponin elevated at 0.2. EKG without acute ischemia. S/p IV labetalol in the ED. LE US negative for DVT. - start Procardia XL 60 mg daily. - clonidine as needed. - echocardiogram pending. - ezio robbins. - trend trops and EKGs. - telemetry. - dietary consult. - check a lipid profile. ADJUST MEDS ADD HYDRALAZINE AND COREG DM/ blurry vision Recently diagnosed with diabetic retinopathy. - start insulin sliding scale. - check A1c. - consult perioperative educator. MONITOR- PROBABLY PO GLUCOTROL 2.5 BID AT DC DUE TO RENAL FUNCTIONS Acute renal failure Likely s/t underlying HTN, DM or both. - check UA. - calculate FENa. - renal US. - hold off on fluids until cardiac function has been assessed. SLOW IMPROVEMENT MEDICAL RENAL DISEASE PER US OF KIDNEYS Hypokalemia K level 3.3. - KCl 20 meq PO x 1. WILL REPLACE AGAIN NONCOMPLIANCE WITH MEDICATIONS- STOPPED SEEING DRS AND TAKING MEDICATIONS IN PAST PPx: Heparin WILL NEED RX FOR ALL MEDS AT DC AND HELP WITH FOLLOW UPS AT DC AWAIT ECHO Discharge Planning PENDING CARDIAC CLEARANCE Ghassan Juarez DO Jan 07, 2018 14:16
[2018-01-07] MEDS ORDERED: POTASSIUM CHLORIDE 25 MEQ EFFERVESCENT TAB PO ONE (15:00)
--- NOTE | 2018-01-07 15:27 | MB ---
cc: Ej Victor MD DATE: 01/07/2018 REASON FOR CONSULTATION: Evaluation of elevated troponin. HISTORY OF PRESENT ILLNESS: Rolf Weeks is a 47-year-old -Citizen Of [place] from the [facility] who has extremely severe hypertension for which I was consulted because of elevations of his troponin. The patient has a longstanding history of known hypertension. It goes back at least 6 or 7 years. Unfortunately, he has not been taking any medications. He has now got significant evidence for end-organ damage with kidney disease and severe left ventricular hypertrophy on his echo and a mitral regurgitation murmur on his exam. The patient has been noticing a swelling in his legs. He is short of breath with activity. He does not have any angina symptoms; however, does not smoke. His troponins are elevated, but the curve is flat, not indicating any ACS. His blood pressure was recorded here as high as 226/128. He has not had a workup for secondary hypertension causes. I guess there has been some talk of potentially having a sugar issue, but his A1c was only 5.7. PAST MEDICAL HISTORY: Mainly notable for hypertension. PAST SURGICAL HISTORY: He has had no surgeries. SOCIAL HISTORY: From the [facility] and he works in housekeeping. Currently unemployed. He is . He has 2 stepchildren and 1 biological child. Does not smoke, does not drink. Denies drug use. FAMILY HISTORY: Positive for hypertension in his mother and father and there was no heart disease otherwise. REVIEW OF SYSTEMS: He has no bleeding. No syncope. No chest pain. Remaining review of systems negative. PHYSICAL EXAMINATION: GENERAL: Well-developed, well-nourished man in no acute distress. VITAL SIGNS: Blood pressure is severely elevated. See vitals. HEENT: Exam unremarkable. NECK: Shows no bruits. No JVD. CHEST: Clear to auscultation. CARDIOVASCULAR: Exam shows a normal S1 and S2. Regular rate and rhythm. There is a prominent at least grade 2 holosystolic mitral regurgitation murmur at the apex. ABDOMEN: Soft, nontender. EXTREMITIES: Reveal 3+ edema to the knees. LABORATORY DATA: Troponins were 0.20, 0.16 and 0.18, which is flat. Creatinine is elevated at 1.8. Hematocrit was 36 dropped to 33, MCV borderline low at 80 and 79.6. Cholesterol is 178, HDL 38.9, LDL 108, triglycerides 156. He has an abnormal renal ultrasound showing hyperechoic kidneys. Chest x-ray shows no acute disease. Ultrasound of the legs shows no DVT. EKG is markedly abnormal. Sinus rhythm, left atrial abnormality and a striking LVH/LV strain type pattern. IMPRESSION: Suspect longstanding untreated hypertension, which is extremely severe and with significant end-organ damage, mainly with kidney and heart disease. RECOMMENDATIONS: I advised a renal consult for workup for secondary causes and to assist with hypertension management. He will need a 2D echo Doppler study and this will assess his LV function and the mitral regurgitation murmur, see how much cardiomyopathy he has. I would like him to be on an ALBINO inhibitor or angiotensin lea, but I am unsure if this is encarnacion to do with the renal insufficiency and a renal consult might be of help in that regard. I am increasing the carvedilol right up to 25 mg twice a day since his blood pressure is nowhere near controlled currently. The patient was asking if he was going to get to go home today and I told him absolutely not, his problems have not stabilized. Further therapy to be determined. MD FRANK Solitario/ANTWON , 03:01 PM , 03:26 PM
--- NOTE | 2018-01-07 16:54 | MB ---
cc: Christal Valdez MD DATE: 01/07/2018 REASON FOR CONSULTATION: Uncontrolled hypertension and elevated blood pressure and chronic kidney disease, for evaluation. HISTORY OF PRESENT ILLNESS: This is a 47-year-old male known to have hypertension for at least 6 years, not being controlled and not compliant with his medication. We do not have any previous lab work but when the patient came in here it was found that his creatinine was 1.8 and the blood pressure was not controlled. The patient also has an elevated troponin, seen by Cardiology. He has some visual disturbance on presentation. Denies any chest pain. No headache or dizziness. No nausea or vomiting. He has some diarrhea off and on. No dysuria or hematuria. There is no history of difficulty in passing urine. Denies taking nonsteroid anti-inflammatory drug. The patient was taking lisinopril and hydrochlorothiazide in the past, but he has not been taking any medicine for almost 2 years. He noticed that he has increased swelling of his legs in the last 2-3 weeks. There is no shortness of breath, no palpitation, no chest pain. PAST MEDICAL HISTORY: Hypertension, diabetes mellitus, possible chronic kidney disease. PAST SURGICAL HISTORY: None. REVIEW OF SYSTEMS: There is no history of fever, no headache or dizziness. He has some blurring of vision, went to see the eye doctor and he was diagnosed with diabetic retinopathy. Then, he went to the Urgent Care and he was referred here because of the high blood pressure. No shortness of breath, no chest pain, no palpitations. He noticed that he has increased swelling of the legs. There is no history of dysuria or hematuria. No history of difficulty in passing urine or renal stone. Not taking any nonsteroidal anti-inflammatory drugs. SOCIAL HISTORY: The patient's mother has a history of hypertension. There is no known family history of renal disease. There is no history of smoking. Occasionally drinks alcoholic beverages. ALLERGIES: HE HAS NO KNOWN DRUG ALLERGIES. MEDICATIONS: Currently, he is on the following medications: 1. Nifedipine 60 mg once a day. 2. Heparin 5000 units subcutaneous every 8 hours. 3. Carvedilol 6.25 mg every 12 hours. PHYSICAL EXAMINATION: GENERAL: The patient is awake, alert. He is not in acute distress. VITAL SIGNS: His last blood pressure was 195/101. Temperature is 98.2, oxygen saturation on room air is 97-98%. HEENT: Pupils are equally reacting to light. Nonicteric sclerae. Conjunctivae are pale. NECK: Supple. JVD is not elevated. LUNGS: The patient has bilateral good air entry. No wheezing. HEART: S1, S2. Regular rate and rhythm. ABDOMEN: Soft and lax. There is no tenderness. Bowel sounds positive. EXTREMITIES: He has bilateral 2+ edema. INVESTIGATIONS: WBC count is 5.9, hemoglobin 11.3, platelet count of 252. Sodium 146, potassium 3.3, chloride 110, bicarbonate 29.5, BUN 21, creatinine 1.8. AST and ALT normal. Total protein is 5.4, albumin is 2.4, triglyceride 156, cholesterol 178, LDL 108, HDL 38.9. Urinalysis showing that he has proteinuria of more than 500, sodium is 41, creatinine 158. IMAGING STUDIES: The patient has ultrasound of the kidneys done, which shows both kidneys are normal in size. Some changes in the kidney consistent with medical renal disease, left pleural effusion. Ultrasound of the lower extremities done which shows that he has no deep vein thrombosis. Chest x-ray was done which shows no acute pulmonary process. ASSESSMENT AND PLAN: 1. Hypertension, uncontrolled. 2. Possible chronic kidney disease. 3. Proteinuria, possibly nephrotic syndrome. 4. History of diabetes mellitus. 5. Elevated troponin, rule out cardiac ischemia. The patient has very high blood pressure and has elevated creatinine, although the creatinine is stable and has significant proteinuria. He possibly has diabetic nephropathy or possibility of hypertensive renal disease, but also need to rule out other causes like focal segmental glomerulosclerosis or membranous glomerulonephritis since he has significant proteinuria. I will check the 24-hour urine for protein and get an ANCA, also get phosphorus level and MRA of the kidneys to look for renal artery stenosis. If he has significant proteinuria, he possibly will need kidney biopsy. At this point, try to control the blood pressure and blood sugar. Thank you for the consultation. I will follow the patient while he is in the hospital. Over the weekend Dr. Cullen Berger will follow the patient. MD RONNY Velasquez/ANTWON , 04:16 PM , 04:53 PM JOSELITO
--- NOTE | 2018-01-07 18:34 | ECHRPT ---
Indication: HEART FAILURE CONCLUSIONS The left ventricular systolic function is mildly reduced with an estimated ejection fraction in the range of 45- 50%. Normal left ventricular size. Severe concentric left ventricular hypertrophy. No regional wall motion abnormalities are present. There is a membranous (infracristal) ventricular septal defect. Mild thickening of the mitral valve leaflets. [id number] mitral valve regurgitation. There is [id number] tricuspid valve regurgitation. The estimated pulmonary arterial pressure is 30.3 mmHg. BP: / HR: Rhythm: Sinus MEASUREMENTS (Male / Female) Normal Values Technical Quality:Excellent 2D ECHO LV Diastolic Diameter PLAX 5.3 cm 4.2 - 5.9 / 3.9 - 5.3 cm LV Systolic Diameter PLAX 3.8 cm IVS Diastolic Thickness 1.5 cm 0.6 - 1.0 / 0.6 - 0.9 cm LVPW Diastolic Thickness 1.5 cm 0.6 - 1.0 / 0.6 - 0.9 cm LV Relative Wall Thickness 0.6 RV Internal Dim ED PLAX 2.5 cm LVOT Diameter 2.1 cm LA Systolic Diameter LX 4.0 cm 3.0 - 4.0 / 2.7 - 3.8 cm LV Ejection Fraction MOD 4C 50.9 % LV Ejection Fraction 4C AL 51.9 % M-MODE Aortic Root Diameter MM 2.6 cm LA Systolic Diameter MM 2.3 cm LA Ao Ratio MM 0.9 AV Cusp Separation MM 3.3 cm DOPPLER AV Peak Velocity 106.0 cm/s AV Peak Gradient 4.5 mmHg LVOT Peak Velocity 79.5 cm/s LVOT Peak Gradient 2.5 mmHg AV Area Cont Eq pk 2.6 cm MV Area PHT 4.7 cm Mitral E Point Velocity 80.9 cm/s Mitral A Point Velocity 62.7 cm/s Mitral E to A Ratio 1.3 LV E' Lateral Velocity 5.9 cm/s Mitral E to LV E' Lateral Ratio 13.6 LV E' Septal Velocity 5.5 cm/s Mitral E to LV E' Septal Ratio 14.8 TR Peak Velocity 225.0 cm/s TR Peak Gradient 20.3 mmHg Right Atrial Pressure 10.0 mmHg Pulmonary Artery Systolic Pressu 30.3 mmHg Right Ventricular Systolic Press 30.3 mmHg PV Peak Velocity 70.6 cm/s PV Peak Gradient 2.0 mmHg FINDINGS LEFT VENTRICLE The left ventricular systolic function is mildly reduced with an estimated ejection fraction in the range of 45- 50%. Normal left ventricular size. Severe concentric left ventricular hypertrophy. No regional wall motion abnormalities are present. There is a membranous (infracristal) ventricular septal defect. RIGHT VENTRICLE Normal right ventricular size and systolic function. LEFT ATRIUM The left atrial size is normal. RIGHT ATRIUM The right atrial size is normal. ATRIAL SEPTUM Normal atrial septal thickness without atrial level shunting by limited color doppler interrogation. AORTA The aortic root and proximal ascending aorta are normal in size on limited imaging. MITRAL VALVE Mild thickening of the mitral valve leaflets. Egugc-[id number] mitral valve regurgitation. AORTIC VALVE Trileaflet aortic valve. No aortic valve stenosis or regurgitation. TRICUSPID VALVE Structurally normal tricuspid valve. There is [id number] tricuspid valve regurgitation. The estimated pulmonary arterial pressure is 30.3 mmHg. PULMONARY VALVE No pulmonary valve regurgitation or stenosis. VESSELS The inferior vena cava is normal in size. PERICARDIUM No pericardial effusion. Ej Victor MD (Electronically Signed) Final Date:07 January 2018 18:33
[2018-01-08] VITALS (7 sets, daily range): BP systolic 148–196; BP diastolic 74–115; PULSE 80–93; RESP 16–18; TEMP 97.2–98.5; O2SAT 95–99
[2018-01-08] MEDS: hydrALAZINE HCL 25 MG TAB PO SCH ×3 (05:47→21:36)
[2018-01-08 08:25] LABS: AUTOMATED NEUTROPHIL # 3.5 TH/MM3 (1.8-7.7); BASOPHIL % 0.5 % (0.0-2.0); EOSINOPHIL # 0.1 TH/MM3 (0-0.4); HEMATOCRIT 34.3 % (39.0-51.0); HEMOGLOBIN 11.6 GM/DL (13.0-17.0); LYMPH % 27.2 % (9.0-44.0); LYMPHOCYTE # 1.5 TH/MM3 (1.0-4.8); MEAN CELL VOLUME 80.5 FL (80.0-100.0); MEAN CORPUSCULAR HEMOGLOBIN 27.2 PG (27.0-34.0); MEAN CORPUSCULAR HGB CONC 33.8 % (32.0-36.0); MEAN PLATELET VOLUME 8.8 FL (7.0-11.0); MONO % 5.6 % (0.0-8.0); MONOCYTE # 0.3 TH/MM3 (0-0.9); NEUT % 64.7 % (16.0-70.0); PLATELET COUNT 249 TH/MM3 (150-450); RED BLOOD COUNT 4.27 MIL/MM3 (4.50-5.90); RED CELL DISTRIBUTION WIDTH 12.8 % (11.6-17.2); WHITE BLOOD COUNT 5.5 TH/MM3 (4.0-11.0)
[2018-01-08 08:52] LABS: ALBUMIN 2.3 GM/DL (3.4-5.0); AST (GOT) 14 U/L (15-37); BICARBONATE 27.2 MEQ/L (21.0-32.0); BLOOD UREA NITROGEN 25 MG/DL (7-18); CALCIUM 8.5 MG/DL (8.5-10.1); CHLORIDE 109 MEQ/L (98-107); CREATININE 1.86 MG/DL (0.60-1.30); GLOMERULAR FILTRATION RATE 47 ML/MIN (>89); GLUCOSE,RANDOM 132 MG/DL (74-106); SODIUM (NA) 145 MEQ/L (136-145)
[2018-01-08 09:02] LABS: ALKALINE PHOSPHATASE 59 U/L (45-117); ALT (GPT) 26 U/L (12-78); FREE T4 0.97 NG/DL (0.76-1.46); PHOSPHORUS 3.4 MG/DL (2.5-4.9); TOTAL BILIRUBIN ADULT 0.4 MG/DL (0.2-1.0); TOTAL PROTEIN 5.2 GM/DL (6.4-8.2)
[2018-01-08] MEDS: HEPARIN SODIUM - SQ 10,000 UNITS/ML VIAL SQ SCH ×2 (09:14→17:50)
[2018-01-08] MEDS: CARVEDILOL 6.25 MG TAB PO SCH (09:14)
[2018-01-08] MEDS: SODIUM CHLORIDE 0.9% FLUSH 10 ML FLUSH IV FLUSH SCH ×2 (09:15→21:37)
[2018-01-08] MEDS: NIFEdipine 60 MG SUSTAINED RELEASE TAB PO SCH (09:15)
[2018-01-08] MEDS: INSULIN ASPART SUPPLEMENTAL SCALE SQ SCH ×4 (09:15→21:36)
--- NOTE | 2018-01-08 11:00 | HHI.PR ---
Subjective Remarks Patient seen and examined this morning. Vitals overall stable, blood pressure continues to be elevated. Patient denies chest pain, headaches, shortness of breath, or visual changes. Once know how long he is going to be at the hospital. Objective Vital Signs Date Time Temp Pulse Resp B/P (MAP) Pulse Ox O2 Delivery O2 Flow Rate FiO2 01/08/18 08:48 98.1 89 18 175/97 (123) 99 01/08/18 08:00 Room Air 01/08/18 03:47 97.2 89 16 177/97 (123) 96 01/07/18 23:42 98.4 86 16 157/87 (110) 97 01/07/18 20:00 98.1 85 17 167/101 (123) 99 01/07/18 13:16 97 21 01/07/18 12:00 98.2 101 16 195/101 (132) 98 I/O 01/07/18 01/07/18 01/07/18 01/08/18 01/08/18 01/08/18 07:00 15:00 23:00 07:00 15:00 23:00 Intake Total 720 ml 360 ml Output Total 750 ml 400 ml Balance 720 ml -750 ml -40 ml Intake Oral 720 ml 360 ml Output Urine Total 750 ml 400 ml # Voids 3 # Bowel Movements 0 2 1 Result Diagram: 01/08/18 0718 01/08/18 0718 Imaging Last Impressions Chest X-Ray 01/06/18 1315 Signed Impressions: CONCLUSION: No acute cardiopulmonary process. Renal Ultrasound 01/06/18 0000 Signed Impressions: CONCLUSION: 1. Sonographic findings consistent with medical renal disease. No obstruction. 2. Left pleural effusion. Lower Extremity Ultrasound 01/06/18 0000 Signed Impressions: CONCLUSION: No DVT. Objective Remarks GENERAL: Well-appearing, no acute distress SKIN: Warm and dry. HEAD: Normocephalic. EYES: No scleral icterus. No injection or drainage. NECK: Supple, trachea midline. No JVD or lymphadenopathy. CARDIOVASCULAR: Regular rate and rhythm, +holosystolic murmur over mitral valve RESPIRATORY: Breath sounds equal bilaterally. No accessory muscle use. GASTROINTESTINAL: Abdomen soft, non-tender, nondistended. MUSCULOSKELETAL: No cyanosis, or edema. A/P Problem List: (1) Diabetes ICD Code: E11.9 - Type 2 diabetes mellitus without complications Status: Acute (2) Elevated troponin I level ICD Code: R74.8 - Abnormal levels of other serum enzymes Status: Acute (3) Hypertensive emergency ICD Code: I16.1 - Hypertensive emergency Status: Acute Assessment and Plan In summary this is a 47-year-old male patient with medical history significant for diabetes and hypertension who presented to [facility] with a chief complaint of blurry vision. Patient was found to have hypertensive emergency. Hypertensive emergency Elevated BPs with elevated troponins and AK I Continue Procardia 60 mg daily, carvedilol 25 mg twice daily, clonodine prn Echo pending Lipid panel slightly elevated LDL Cardiology has been consulted: Would like patient to be on an ALBINO or an R but unsure due to his renal function Blurry vision, likely related to elevated blood pressure and or diabetes AK I Likely related to a combination of both underlying hypertension and diabetes that are uncontrolled Ultrasound with evidence of medical renal disease Elevated creatinine and significant proteinuria, per nephrology likely diabetic nephropathy or possibly hypertensive renal disease but will need to rule out focal segmental glomerulosclerosis or membranous glomerulonephritis since he does have a significant proteinuria. 24-hour urine protein has been ordered, ankle, phosphorus level, MRI of kidneys. May need kidney biopsy Prediabetes A1c 5.7 DVT prohy Patient is ambulatory Discharge Planning DC pending further workup Problem Qualifiers (1) Diabetes: Qualified Codes: E11.8 - Type 2 diabetes mellitus with unspecified complications Elvie Vogel MD Jan 08, 2018 11:00
[2018-01-08] MEDS ORDERED: GADODIAMIDE PF 287 MG/ML 10 ML VIAL (for RAD MRI) IVCONTRAST ONE (11:03)
--- NOTE | 2018-01-08 12:22 | RADRPT ---
EXAM DATE: 01/08/2018 11:53 AM EDT AGE/SEX: 47 years / Male INDICATIONS: . Uncontrolled hypertension. CLINICAL DATA: This is the patient's initial encounter. Patient reports that signs and symptoms have been present for 1 day and indicates a pain score of 0/10. MEDICAL/SURGICAL HISTORY: Diabetes mellitus type II. Hypertension. None. COMPARISON: No prior exams available for comparison. TECHNIQUE: 30 ml Omniscan (gadodiamide) contrast infused MR angiography (single exam dose) was perf ormed with digital subtraction. The data was postprocessed with a variety of visualization algorithm s including full-volume maximum-intensity projection, multiplanar sliding thin slab reformation, and curved planar reformation. FINDINGS: Abdominal Aorta: The lumen is smooth without significant narrowing or aneurysmal dilation. The pr oximal celiac and superior mesenteric arteries are patent and normal in diameter. Renal Arteries: There are solitary renal arteries bilaterally. No evidence of ostial or segmental s tenosis. Kidneys: There is symmetric renal size. There is homogeneous enhancement in the parenchyma. Bifurcation: Normal. Right Pelvis: The right common iliac, internal iliac, and external iliac vessels are patent without luminal irregularity. Left Pelvis: The left common iliac, internal iliac, and external iliac vessels are patent and withou t luminal irregularity. Retroperitoneum: The adrenal glands are unremarkable. No adenopathy seen. CONCLUSION: 1. Normal renal arteries. No stenosis Electronically signed by: Daniel Hsu MD 01/08/2018 12:21 PM EDT
--- NOTE | 2018-01-08 14:08 | PD.CARD.PN ---
Subjective Subjective Remarks no complaints Objective Medications Current Medications Medications (Trade) Dose Ordered Sig/Tayo Route Start Time Stop Time Status Last Admin (Procardia Xl) 60 mg DAILY PO 01/07/18 09:00 01/08/18 09:15 (NovoLOG SUPPLEMENTAL SCALE) 1 ACHS SLIDING SCALE SQ 01/06/18 17:00 01/08/18 09:15 (D50w (Vial) Inj) 50 ml UNSCH PRN IV PUSH 01/06/18 15:30 (Glucagon Inj) 1 mg UNSCH PRN OTHER 01/06/18 15:30 (NS Flush) 2 ml UNSCH PRN IV FLUSH 01/06/18 15:30 (NS Flush) 2 ml BID IV FLUSH 01/06/18 21:00 01/08/18 09:15 (Tylenol) 650 mg Q4H PRN PO 01/06/18 15:30 (Heparin Inj) 5,000 units Q8H SQ 01/06/18 16:00 01/08/18 09:14 (Tylenol) 650 mg Q6H PRN PO 01/06/18 15:30 (Narcan Inj) 0.4 mg UNSCH PRN IV PUSH 01/06/18 15:30 (Catapres) 0.1 mg Q6H PRN PO 01/06/18 15:30 01/07/18 13:37 (Apresoline) 25 mg Q8HR PO 01/07/18 09:15 01/08/18 05:47 (Coreg) 12.5 mg Q12HR PO 01/08/18 21:00 Vital Signs / I&O Vital Signs Date Time Temp Pulse Resp B/P (MAP) Pulse Ox O2 Delivery O2 Flow Rate FiO2 01/08/18 08:48 98.1 89 18 175/97 (123) 99 01/08/18 08:00 Room Air 01/08/18 07:51 84 01/08/18 03:47 97.2 89 16 177/97 (123) 96 01/07/18 23:42 98.4 86 16 157/87 (110) 97 01/07/18 20:00 98.1 85 17 167/101 (123) 99 I/O 6/22/18 6/22/18 6/22/18 6/23/18 6/23/18 6/23/18 06:59 14:59 22:59 06:59 14:59 22:59 Intake Total 720 ml 360 ml Output Total 750 ml 400 ml Balance 720 ml -750 ml -40 ml Intake Oral 720 ml 360 ml Output Urine Total 750 ml 400 ml # Voids 3 # Bowel Movements 0 2 1 Physical Exam Alert No JVD Chest clear CV S1S2 RRR, 2/6 holosystolic murmur 2+ edema Laboratory Laboratory Tests Test 01/08/18 07:18 White Blood Count 5.5 TH/MM3 Red Blood Count 4.27 MIL/MM3 Hemoglobin 11.6 GM/DL Hematocrit 34.3 % Mean Corpuscular Volume 80.5 FL Mean Corpuscular Hemoglobin 27.2 PG Mean Corpuscular Hemoglobin Concent 33.8 % Red Cell Distribution Width 12.8 % Platelet Count 249 TH/MM3 Mean Platelet Volume 8.8 FL Neutrophils (%) (Auto) 64.7 % Lymphocytes (%) (Auto) 27.2 % Monocytes (%) (Auto) 5.6 % Eosinophils (%) (Auto) 2.0 % Basophils (%) (Auto) 0.5 % Neutrophils # (Auto) 3.5 TH/MM3 Lymphocytes # (Auto) 1.5 TH/MM3 Monocytes # (Auto) 0.3 TH/MM3 Eosinophils # (Auto) 0.1 TH/MM3 Basophils # (Auto) 0.0 TH/MM3 CBC Comment DIFF FINAL Differential Comment Blood Urea Nitrogen 25 MG/DL Creatinine 1.86 MG/DL Random Glucose 132 MG/DL Total Protein 5.2 GM/DL Albumin 2.3 GM/DL Calcium Level 8.5 MG/DL Phosphorus Level 3.4 MG/DL Magnesium Level 2.0 MG/DL Alkaline Phosphatase 59 U/L Aspartate Amino Transf (AST/SGOT) 14 U/L Alanine Aminotransferase (ALT/SGPT) 26 U/L Total Bilirubin 0.4 MG/DL Sodium Level 145 MEQ/L Potassium Level 3.4 MEQ/L Chloride Level 109 MEQ/L Carbon Dioxide Level 27.2 MEQ/L Anion Gap 9 MEQ/L Estimat Glomerular Filtration Rate 47 ML/MIN Free Thyroxine 0.97 NG/DL Thyroid Stimulating Hormone 3rd Gen 1.180 uIU/ML Imaging Last 24 hours Impressions Abdomen Magnetic Resonance Angio 01/08/18 0000 Signed Impressions: CONCLUSION: 1. Normal renal arteries. No stenosis Assessment and Plan Problem List: (1) Ventricular septal defect (VSD), membranous ICD Codes: Q21.0 - Ventricular septal defect Plan: small. No dilatation of RA/RV (2) Hypertensive heart disease ICD Codes: I11.9 - Hypertensive heart disease without heart failure Assessment and Plan appreciate renal's help and W/U Ej Victor MD Jan 08, 2018 14:08
[2018-01-08] MEDS: cloNIDine HCL 0.1 MG TAB PO PRN (17:50)
--- NOTE | 2018-01-08 18:37 | HHI.NPPN ---
Subjective Additional Remarks No acute complaints Objective Data Data Vital Signs Date Time Temp Pulse Resp B/P (MAP) Pulse Ox O2 Delivery O2 Flow Rate FiO2 01/08/18 16:00 Room Air 01/08/18 15:54 90 01/08/18 15:43 21 01/08/18 12:28 97.3 83 18 169/93 (118) 98 01/08/18 12:00 Room Air 01/08/18 08:48 98.1 89 18 175/97 (123) 99 01/08/18 08:00 Room Air 01/08/18 07:51 84 01/08/18 03:47 97.2 89 16 177/97 (123) 96 01/07/18 23:42 98.4 86 16 157/87 (110) 97 01/07/18 20:00 98.1 85 17 167/101 (123) 99 -: 01/08/18 0718 01/08/18 0718 Physical Exam General Appearance: Well Developed, Well Nourished, No Acute Distress Throat Throat Exam: Oral Mucosa [place] & Moist Neck Neck Exam: Neck Supple Pulmonary Resp Exam: Decreased Bases Cardiology CV Exam: Regular, Normal Sinus Rhythm, Good Perfusion Gastrointestinal/Abdomen GI Exam: Soft, Non-Tender, Bowel Sounds Present Musculoskeletal MS Exam: Joints Intact Integumentary Skin Exam: Warm, Dry, Intact Extremeties Extremities Exam: Trace Edema Neurologic Neuro Exam: Alert, Awake, Oriented, Speech Clear Assessment/Plan Problem List: (1) DAVI (acute kidney injury) ICD Codes: N17.9 - Acute kidney failure, unspecified Plan: Possible CKD with proteinuria Likely component of CKD due to HTN as well. Urinary collection not done yesterday - collection started this afternoon. Will evaluate to further assess proteinuria. Serologies pending If he has significant proteinuria, he possibly will need kidney biopsy. At this point, try to control the blood pressure and blood sugar. MRA negative for renal artery stenosis BP improved today Continue to follow work-up (2) Diabetes ICD Codes: E11.9 - Type 2 diabetes mellitus without complications Status: Acute Plan: Continue to monitor Hgb A1c 5.7 (3) Hypertensive heart disease ICD Codes: I11.9 - Hypertensive heart disease without heart failure Plan: BP improved - continue to monitor. Start ALBINO-I when renal function stable Problem Qualifiers (1) Diabetes: Qualified Codes: E11.8 - Type 2 diabetes mellitus with unspecified complications Berger,Cullen V. MD Jan 08, 2018 18:37
[2018-01-08] MEDS: CARVEDILOL 12.5 MG TAB PO SCH (21:36)
[2018-01-09] VITALS (14 sets, daily range): BP systolic 152–170; BP diastolic 76–110; PULSE 77–102; RESP 17–20; TEMP 98.2–99.1; O2SAT 95–98
[2018-01-09] MEDS: HEPARIN SODIUM - SQ 10,000 UNITS/ML VIAL SQ SCH ×4 (00:09→23:46)
[2018-01-09] MEDS: hydrALAZINE HCL 25 MG TAB PO SCH ×3 (05:05→21:33)
[2018-01-09] MEDS: INSULIN ASPART SUPPLEMENTAL SCALE SQ SCH ×4 (08:00→21:33)
[2018-01-09] MEDS: SODIUM CHLORIDE 0.9% FLUSH 10 ML FLUSH IV FLUSH SCH ×2 (08:26→21:34)
[2018-01-09] MEDS: CARVEDILOL 12.5 MG TAB PO SCH ×2 (08:26→21:33)
[2018-01-09] MEDS: NIFEdipine 60 MG SUSTAINED RELEASE TAB PO SCH (08:26)
[2018-01-09 09:03] LABS: BICARBONATE 26.7 MEQ/L (21.0-32.0); CALCIUM 8.3 MG/DL (8.5-10.1); CREATININE 1.92 MG/DL (0.60-1.30)
--- NOTE | 2018-01-09 09:37 | HHI.PR ---
Subjective Remarks Patient seen and examined this morning. Vitals overall stable, blood pressure continues to be elevated. Denies CP, PAUL, or visual changes. Has been collecting his urine. Wants to know if he can leave and come back. Objective Vital Signs Date Time Temp Pulse Resp B/P (MAP) Pulse Ox O2 Delivery O2 Flow Rate FiO2 01/09/18 08:13 98.8 90 20 164/84 (110) 95 01/09/18 04:00 98.5 83 18 153/79 (103) 95 01/09/18 03:58 77 01/09/18 00:00 98.3 90 17 97 152/98 (116) 01/09/18 00:00 Room Air 01/09/18 00:00 85 01/08/18 22:07 21 01/08/18 20:15 Room Air 01/08/18 20:00 98.5 86 17 148/74 (98) 95 01/08/18 20:00 80 01/08/18 16:28 98.1 93 18 196/115 (142) 98 01/08/18 16:00 Room Air 01/08/18 15:54 90 01/08/18 15:43 21 01/08/18 12:28 97.3 83 18 169/93 (118) 98 01/08/18 12:00 Room Air I/O 01/08/18 01/08/18 01/08/18 01/09/18 01/09/18 01/09/18 06:59 14:59 22:59 06:59 14:59 22:59 Intake Total 360 ml 520 ml 660 ml Output Total 400 ml 2400 ml Balance -40 ml -1880 ml 660 ml Intake Oral 360 ml 520 ml 660 ml Output Urine Total 400 ml 2400 ml # Bowel Movements 1 2 0 Result Diagram: 01/08/18 0718 01/09/18 0812 Imaging Last Impressions Abdomen Magnetic Resonance Angio 01/08/18 0000 Signed Impressions: CONCLUSION: 1. Normal renal arteries. No stenosis Chest X-Ray 01/06/18 1315 Signed Impressions: CONCLUSION: No acute cardiopulmonary process. Renal Ultrasound 01/06/18 0000 Signed Impressions: CONCLUSION: 1. Sonographic findings consistent with medical renal disease. No obstruction. 2. Left pleural effusion. Lower Extremity Ultrasound 01/06/18 0000 Signed Impressions: CONCLUSION: No DVT. Objective Remarks GENERAL: Well-appearing, no acute distress SKIN: Warm and dry. HEAD: Normocephalic. EYES: No scleral icterus. No injection or drainage. NECK: Supple, trachea midline. No JVD or lymphadenopathy. CARDIOVASCULAR: Regular rate and rhythm, +holosystolic murmur over mitral valve RESPIRATORY: Breath sounds equal bilaterally. No accessory muscle use. GASTROINTESTINAL: Abdomen soft, non-tender, nondistended. MUSCULOSKELETAL: No cyanosis, or edema. A/P Problem List: (1) Diabetes ICD Code: E11.9 - Type 2 diabetes mellitus without complications Status: Acute (2) Elevated troponin I level ICD Code: R74.8 - Abnormal levels of other serum enzymes Status: Acute (3) Hypertensive emergency ICD Code: I16.1 - Hypertensive emergency Status: Acute Assessment and Plan In summary this is a 47-year-old male patient with medical history significant for diabetes and hypertension who presented to [place] ER with a chief complaint of blurry vision. Patient was found to have hypertensive emergency. Hypertensive emergency Elevated BPs with elevated troponins and AK I Continue Procardia 60 mg daily, carvedilol 25 mg twice daily, clonodine prn Echo pending Lipid panel slightly elevated LDL Cardiology has been consulted: Would like patient to be on an ALBINO or an ARB but unsure due to his renal function Blurry vision, likely related to elevated blood pressure and or diabetes AK I (Dr. Valdez following) Likely related to a combination of both underlying hypertension and diabetes that are uncontrolled Ultrasound with evidence of medical renal disease Elevated creatinine and significant proteinuria, per nephrology likely diabetic nephropathy or possibly hypertensive renal disease but will need to rule out focal segmental glomerulosclerosis or membranous glomerulonephritis since he does have a significant proteinuria. 24-hour urine protein has been ordered, ankle, phosphorus level, MRI of kidneys. May need kidney biopsy - MRA normal renal arteries - LE US no DVT - Renal US consistent with medical renal disease - UR random Cr 158, UR random Na 41 Prediabetes A1c 5.7 DVT prophy Patient is ambulatory Discharge Planning [place] pending further workup Problem Qualifiers (1) Diabetes: Qualified Codes: E11.8 - Type 2 diabetes mellitus with unspecified complications Elvie Vogel MD Jan 09, 2018 09:37
[2018-01-09] MEDS ORDERED: POTASSIUM CHLORIDE 25 MEQ EFFERVESCENT TAB PO ONE (10:00)
--- NOTE | 2018-01-09 12:27 | HHI.FPPN ---
Addendum to progress note ADDENDUM Reason for addendum: Additonal documentation Additional information I am let renal handle his BP meds. I will be available prn - please call if questions Ej Victor MD Jan 09, 2018 12:27
--- NOTE | 2018-01-09 15:49 | HHI.NPPN ---
Subjective Additional Remarks No acute complaints Objective Data Data Vital Signs Date Time Temp Pulse Resp B/P (MAP) Pulse Ox O2 Delivery O2 Flow Rate FiO2 01/09/18 12:03 98.5 81 20 158/76 (103) 98 01/09/18 12:00 Room Air 01/09/18 11:41 81 01/09/18 08:13 98.8 90 20 164/84 (110) 95 01/09/18 08:00 Room Air 01/09/18 07:59 87 01/09/18 04:00 98.5 83 18 153/79 (103) 95 01/09/18 03:58 77 01/09/18 00:00 98.3 90 17 97 152/98 (116) 01/09/18 00:00 Room Air 01/09/18 00:00 85 01/08/18 22:07 21 01/08/18 20:15 Room Air 01/08/18 20:00 98.5 86 17 148/74 (98) 95 01/08/18 20:00 80 01/08/18 16:28 98.1 93 18 196/115 (142) 98 01/08/18 16:00 Room Air 01/08/18 15:54 90 -: 01/08/18 0718 01/09/18 0812 Physical Exam General Appearance: Well Developed, Well Nourished, No Acute Distress Throat Throat Exam: Oral Mucosa [place] & Moist Neck Neck Exam: Neck Supple Pulmonary Resp Exam: Decreased Bases Cardiology CV Exam: Regular, Normal Sinus Rhythm, Good Perfusion Gastrointestinal/Abdomen GI Exam: Soft, Non-Tender, Bowel Sounds Present Musculoskeletal MS Exam: Joints Intact Integumentary Skin Exam: Warm, Dry, Intact Extremeties Extremities Exam: Trace Edema Neurologic Neuro Exam: Alert, Awake, Oriented, Speech Clear Assessment/Plan Problem List: (1) DAVI (acute kidney injury) ICD Codes: N17.9 - Acute kidney failure, unspecified Plan: Possible CKD with proteinuria Likely component of CKD due to HTN as well. Urinary collection not done Wednesday - collection started wednesday afternoon. Will evaluate to further assess proteinuria. Serologies pending If he has significant proteinuria, he possibly will need kidney biopsy. At this point, contniue to try to control the blood pressure and blood sugar. MRA negative for renal artery stenosis BP improving Continue to follow work-up (2) Diabetes ICD Codes: E11.9 - Type 2 diabetes mellitus without complications Status: Acute Plan: Continue to monitor Hgb A1c 5.7 (3) Hypertensive heart disease ICD Codes: I11.9 - Hypertensive heart disease without heart failure Plan: BP improved - continue to monitor. Will increase coreg today Start ALBINO-I when renal function stable Problem Qualifiers (1) Diabetes: Qualified Codes: E11.8 - Type 2 diabetes mellitus with unspecified complications Cullen Berger MD Jan 09, 2018 15:48
[2018-01-10] VITALS (8 sets, daily range): BP systolic 144–172; BP diastolic 73–94; PULSE 85–98; RESP 16–20; TEMP 98.5–99.7; O2SAT 94–98
[2018-01-10] MEDS: hydrALAZINE HCL 25 MG TAB PO SCH ×3 (05:34→21:09)
[2018-01-10] MEDS: INSULIN ASPART SUPPLEMENTAL SCALE SQ SCH ×4 (07:53→21:00)
[2018-01-10] MEDS: CARVEDILOL 12.5 MG TAB PO SCH ×2 (08:45→21:08)
[2018-01-10] MEDS: NIFEdipine 60 MG SUSTAINED RELEASE TAB PO SCH (08:45)
[2018-01-10] MEDS: SODIUM CHLORIDE 0.9% FLUSH 10 ML FLUSH IV FLUSH SCH ×2 (08:45→21:09)
[2018-01-10] MEDS: HEPARIN SODIUM - SQ 10,000 UNITS/ML VIAL SQ SCH ×2 (08:45→16:03)
--- NOTE | 2018-01-10 09:37 | HHI.PR ---
Subjective Remarks Patient seen and examined this morning. Vitals overall stable, blood pressure continues to be elevated but better controlled. Objective Vital Signs Date Time Temp Pulse Resp B/P (MAP) Pulse Ox O2 Delivery O2 Flow Rate FiO2 01/10/18 04:00 99.5 97 18 160/ 95 160/82 (108) 01/10/18 04:00 98 01/10/18 00:00 99.7 93 16 158/73 (101) 98 01/09/18 23:59 92 01/09/18 21:32 152/80 (104) 01/09/18 20:35 98 21 01/09/18 20:30 Room Air 01/09/18 20:00 98.2 102 20 170/110 (130) 96 01/09/18 19:53 94 01/09/18 16:10 99.1 89 20 154/84 (107) 97 01/09/18 16:00 Room Air 01/09/18 15:55 88 01/09/18 12:03 98.5 81 20 158/76 (103) 98 01/09/18 12:00 Room Air 01/09/18 11:41 81 I/O 01/09/18 01/09/18 01/09/18 01/10/18 01/10/18 01/10/18 07:00 15:00 23:00 07:00 15:00 23:00 Intake Total 660 ml 720 ml 600 ml Output Total 500 ml Balance 660 ml 220 ml 600 ml Intake Oral 660 ml 720 ml 600 ml Output Urine Total 500 ml # Voids 3 # Bowel Movements 0 Result Diagram: 01/08/18 0718 01/09/18 0812 Imaging Last Impressions Abdomen Magnetic Resonance Angio 01/08/18 0000 Signed Impressions: CONCLUSION: 1. Normal renal arteries. No stenosis Chest X-Ray 01/06/18 1315 Signed Impressions: CONCLUSION: No acute cardiopulmonary process. Renal Ultrasound 01/06/18 0000 Signed Impressions: CONCLUSION: 1. Sonographic findings consistent with medical renal disease. No obstruction. 2. Left pleural effusion. Lower Extremity Ultrasound 01/06/18 0000 Signed Impressions: CONCLUSION: No DVT. Objective Remarks GENERAL: Well-appearing, no acute distress SKIN: Warm and dry. HEAD: Normocephalic. EYES: No scleral icterus. No injection or drainage. NECK: Supple, trachea midline. No JVD or lymphadenopathy. CARDIOVASCULAR: Regular rate and rhythm, +holosystolic murmur over mitral valve RESPIRATORY: Breath sounds equal bilaterally. No accessory muscle use. GASTROINTESTINAL: Abdomen soft, non-tender, nondistended. MUSCULOSKELETAL: No cyanosis, or edema. A/P Problem List: (1) Diabetes ICD Code: E11.9 - Type 2 diabetes mellitus without complications Status: Acute (2) Elevated troponin I level ICD Code: R74.8 - Abnormal levels of other serum enzymes Status: Acute (3) Hypertensive emergency ICD Code: I16.1 - Hypertensive emergency Status: Acute Assessment and Plan In summary this is a 47-year-old male patient with medical history significant for diabetes and hypertension who presented to [place] ER with a chief complaint of blurry vision. Patient was found to have hypertensive emergency. Hypertensive emergency Elevated BPs with elevated troponins and AK I Continue Procardia 60 mg daily, carvedilol 25 mg twice daily, clonodine prn Echo pending Lipid panel slightly elevated LDL Cardiology has been consulted (would like patient on ACEI/ARB0 Per nephro patient may be on ACEI when BP improved. AK I (Dr. Valdez following) Likely related to a combination of both underlying hypertension and diabetes that are uncontrolled Ultrasound with evidence of medical renal disease Elevated creatinine and significant proteinuria, per nephrology likely diabetic nephropathy or possibly hypertensive renal disease but will need to rule out focal segmental glomerulosclerosis or membranous glomerulonephritis since he does have a significant proteinuria. 24-hour urine protein has been ordered, ankle, phosphorus level, MRI of kidneys. May need kidney biopsy - MRA normal renal arteries - LE US no DVT - Renal US consistent with medical renal disease - UR random Cr 158, UR random Na 41 Prediabetes A1c 5.7 DVT prophy Patient is ambulatory Discharge Planning [place] pending further workup Problem Qualifiers (1) Diabetes: Qualified Codes: E11.8 - Type 2 diabetes mellitus with unspecified complications Elvie Vogel MD Jan 10, 2018 09:37
[2018-01-10] MEDS ORDERED: POTASSIUM CHLORIDE 10 MEQ CONTROLLED RELEASE TAB PO ONE (11:00)
[2018-01-10 13:19] LABS: BICARBONATE 25.8 MEQ/L (21.0-32.0); CALCIUM 8.6 MG/DL (8.5-10.1); CREATININE 1.99 MG/DL (0.60-1.30)
--- NOTE | 2018-01-10 17:15 | HHI.NPPN ---
Subjective Additional Remarks Sitting up on couch. No acute complaints. Blood pressure labile. (Marianela Prince) Objective Data Data Vital Signs Date Time Temp Pulse Resp B/P (MAP) Pulse Ox O2 Delivery O2 Flow Rate FiO2 01/10/18 12:00 87 01/10/18 12:00 98.8 89 20 152/90 (110) 97 01/10/18 10:57 95 21 01/10/18 08:00 98.5 85 20 172/89 (116) 94 01/10/18 08:00 148/88 (108) 01/10/18 08:00 95 01/10/18 07:45 Room Air 01/10/18 04:00 99.5 97 18 160/ 95 160/82 (108) 01/10/18 04:00 98 01/10/18 00:00 99.7 93 16 158/73 (101) 98 01/09/18 23:59 92 01/09/18 21:32 152/80 (104) 01/09/18 20:35 98 21 01/09/18 20:30 Room Air 01/09/18 20:00 98.2 102 20 170/110 (130) 96 01/09/18 19:53 94 (Marianela Prince) -: 01/08/18 0718 01/10/18 1100 Physical Exam General Appearance: Well Developed, Well Nourished, No Acute Distress (Marianela Prince) Throat Throat Exam: Oral Mucosa [place] & Moist (Marianela Prince) Neck Neck Exam: Neck Supple (Marianela Prince) Pulmonary Resp Exam: Decreased Bases (Marianela Prince) Cardiology CV Exam: Regular, Normal Sinus Rhythm, Good Perfusion (Marianela Prince) Gastrointestinal/Abdomen GI Exam: Soft, Non-Tender, Bowel Sounds Present (Marianela Prince) Musculoskeletal MS Exam: Joints Intact (Marianela Prince) Integumentary Skin Exam: Warm, Dry, Intact (Marianela Prince) Extremeties Extremities Exam: Trace Edema (Marianela Prince) Neurologic Neuro Exam: Alert, Awake, Oriented, Speech Clear (Marianela Prince) Assessment/Plan Problem List: (1) DAVI (acute kidney injury) ICD Codes: N17.9 - Acute kidney failure, unspecified Plan: Possible CKD with proteinuria Likely component of CKD due to HTN as well. MARLENA negative Has significant proteinuria, he possibly will need kidney biopsy. Will need ALBINO or ARB when renal function stabilizes Creatinine slightly increased at 1.99 Avoid nephrotoxins MRA negative for renal artery stenosis BP improving Continue to follow work-up (2) Diabetes ICD Codes: E11.9 - Type 2 diabetes mellitus without complications Status: Acute Plan: Continue to monitor Hgb A1c 5.7 (3) Hypertensive heart disease ICD Codes: I11.9 - Hypertensive heart disease without heart failure Plan: BP improved - continue to monitor. Start ALBINO-I when renal function stable (Marianela Prince) Problem List: (1) DAVI (acute kidney injury) ICD Codes: N17.9 - Acute kidney failure, unspecified Plan: Possible CKD with proteinuria Likely component of CKD due to HTN as well. MARLENA negative Has significant proteinuria, he possibly will need kidney biopsy. Will need ALBINO or ARB when renal function stabilizes Creatinine slightly increased at 1.99 Avoid nephrotoxins MRA negative for renal artery stenosis BP improving Continue to follow work-up. Patient seen and examined, agree with above. MRA negative for SHARONA. Has 4.2 gm of proteinuria, MARLENA is negative and ANCA is pending. BP is better. (2) Diabetes ICD Codes: E11.9 - Type 2 diabetes mellitus without complications Status: Acute Plan: Continue to monitor Hgb A1c 5.7 (3) Hypertensive heart disease ICD Codes: I11.9 - Hypertensive heart disease without heart failure Plan: BP improved - continue to monitor. Start ALBINO-I when renal function stable (Nigel Valdez MD) Problem Qualifiers (1) Diabetes: Qualified Codes: E11.8 - Type 2 diabetes mellitus with unspecified complications Marianela Prince Jan 10, 2018 17:15 Nigel Valdez MD Jan 10, 2018 22:45
[2018-01-11] VITALS (10 sets, daily range): BP systolic 140–158; BP diastolic 74–86; PULSE 74–87; RESP 16–17; TEMP 98.6–99.2; O2SAT 97–99
[2018-01-11] MEDS: HEPARIN SODIUM - SQ 10,000 UNITS/ML VIAL SQ SCH ×3 (00:15→16:00)
[2018-01-11] MEDS: hydrALAZINE HCL 25 MG TAB PO SCH ×3 (05:44→20:45)
[2018-01-11] MEDS: INSULIN ASPART SUPPLEMENTAL SCALE SQ SCH ×4 (08:00→20:45)
[2018-01-11 09:17] LABS: BICARBONATE 24.6 MEQ/L (21.0-32.0); CALCIUM 8.1 MG/DL (8.5-10.1); CREATININE 2.18 MG/DL (0.60-1.30)
[2018-01-11] MEDS: NIFEdipine 60 MG SUSTAINED RELEASE TAB PO SCH (09:19)
[2018-01-11] MEDS: SODIUM CHLORIDE 0.9% FLUSH 10 ML FLUSH IV FLUSH SCH ×2 (09:19→20:45)
[2018-01-11] MEDS: CARVEDILOL 12.5 MG TAB PO SCH ×2 (09:19→20:45)
--- NOTE | 2018-01-11 16:41 | HHI.NPPN ---
Subjective Additional Remarks Sitting up on couch. Reports that he is not sleeping well. Denies any shortness of breath. No edema. (Marianela Prince) Objective Data Data Vital Signs Date Time Temp Pulse Resp B/P (MAP) Pulse Ox O2 Delivery O2 Flow Rate FiO2 01/11/18 16:00 98.8 83 17 140/74 (96) 98 01/11/18 12:00 77 01/11/18 12:00 98.6 74 17 140/80 (100) 99 01/11/18 08:00 98.8 87 17 158/86 (110) 99 01/11/18 08:00 Room Air 01/11/18 08:00 87 01/11/18 05:45 99.0 80 16 146/80 (102) 98 01/11/18 04:41 86 01/11/18 04:17 Room Air 01/11/18 00:16 Room Air 01/11/18 00:00 86 01/11/18 00:00 99.2 80 16 155/86 (109) 98 01/10/18 21:07 99.5 86 16 157/84 (108) 98 01/10/18 20:00 88 01/10/18 20:00 Room Air (Marianela Prince) -: 01/08/18 0718 01/11/18 0730 Physical Exam General Appearance: Well Developed, Well Nourished, No Acute Distress (Marianela Prince) Throat Throat Exam: Oral Mucosa [place] & Moist (Marianela Prince) Neck Neck Exam: Neck Supple (Marianela Prince) Pulmonary Resp Exam: Decreased Bases (Marianela Prince) Cardiology CV Exam: Regular, Normal Sinus Rhythm, Good Perfusion (Marianela Prince) Gastrointestinal/Abdomen GI Exam: Soft, Non-Tender, Bowel Sounds Present (Marianela Prince) Musculoskeletal MS Exam: Joints Intact (Marianela Prince) Integumentary Skin Exam: Warm, Dry, Intact (Marianela Prince) Extremeties Extremities Exam: Trace Edema (Marianela Prince) Neurologic Neuro Exam: Alert, Awake, Oriented, Speech Clear (Marianela Prince) Assessment/Plan Problem List: (1) DAVI (acute kidney injury) ICD Codes: N17.9 - Acute kidney failure, unspecified Plan: Possible CKD with proteinuria Likely component of CKD due to HTN as well. MARLENA negative Has significant proteinuria Will need ALBINO or ARB when renal function stabilizes Creatinine slightly increased at 1.99 ->2.18 Avoid nephrotoxins MRA negative for renal artery stenosis BP improved Recommended to have renal biopsy however patient has declined at this time. (2) Diabetes ICD Codes: E11.9 - Type 2 diabetes mellitus without complications Status: Acute Plan: Continue to monitor Hgb A1c 5.7 (3) Hypertensive heart disease ICD Codes: I11.9 - Hypertensive heart disease without heart failure Plan: BP improved - continue to monitor. Start ALBINO-I when renal function stable (Marianela Prince) Problem List: (1) DAVI (acute kidney injury) ICD Codes: N17.9 - Acute kidney failure, unspecified Plan: Possible CKD with proteinuria Likely component of CKD due to HTN as well. MARLENA negative Has significant proteinuria Will need ALBINO or ARB when renal function stabilizes Creatinine slightly increased at 1.99 ->2.18 Avoid nephrotoxins MRA negative for renal artery stenosis BP improved Recommended to have renal biopsy however patient has declined at this time. Patient seen and examined, agree with above. Need to have kidney Biopsy, as has more than 4 gm proteinuria, possibly has FSGS or Membranous GN. D/W the patient, he is refusing the Biopsy. (2) Diabetes ICD Codes: E11.9 - Type 2 diabetes mellitus without complications Status: Acute Plan: Continue to monitor Hgb A1c 5.7 (3) Hypertensive heart disease ICD Codes: I11.9 - Hypertensive heart disease without heart failure Plan: BP improved - continue to monitor. Start ALBINO-I when renal function stable (Nigel Valdez MD) Problem Qualifiers (1) Diabetes: Qualified Codes: E11.8 - Type 2 diabetes mellitus with unspecified complications Marianela Prince Jan 11, 2018 16:41 Nigel Valdez MD Jan 11, 2018 21:37
--- NOTE | 2018-01-11 17:06 | HHI.PR ---
Subjective Remarks Pt insists on being discharged today. states that he knows his body and he needs rest. denies any chest pain, SOB, nausea or vomiting. He states that nephrology offered him a kidney biopsy but he refuses at this time and wants to proceed w this at a later date. he tells me that he doesn't have health insurance but feels that resting might makes things better and maybe his kidneys can recover on their own as long as he rests. Objective Vitals Vital Signs Date Time Temp Pulse Resp B/P (MAP) Pulse Ox O2 Delivery O2 Flow Rate FiO2 01/11/18 16:00 98.8 83 17 140/74 (96) 98 01/11/18 12:00 77 01/11/18 12:00 98.6 74 17 140/80 (100) 99 01/11/18 08:00 98.8 87 17 158/86 (110) 99 01/11/18 08:00 Room Air 01/11/18 08:00 87 01/11/18 05:45 99.0 80 16 146/80 (102) 98 01/11/18 04:41 86 01/11/18 04:17 Room Air 01/11/18 00:16 Room Air 01/11/18 00:00 86 01/11/18 00:00 99.2 80 16 155/86 (109) 98 01/10/18 21:07 99.5 86 16 157/84 (108) 98 01/10/18 20:00 88 01/10/18 20:00 Room Air I/O 01/10/18 01/10/18 01/10/18 01/11/18 01/11/18 01/11/18 07:00 15:00 23:00 07:00 15:00 23:00 Intake Total 600 ml 720 ml 240 ml Balance 600 ml 720 ml 240 ml Intake Oral 600 ml 720 ml 240 ml # Voids 3 2 3 # Bowel Movements 0 0 Result Diagram: 01/08/18 0718 01/11/18 0730 Imaging Last Impressions Abdomen Magnetic Resonance Angio 01/08/18 0000 Signed Impressions: CONCLUSION: 1. Normal renal arteries. No stenosis Chest X-Ray 01/06/18 1315 Signed Impressions: CONCLUSION: No acute cardiopulmonary process. Renal Ultrasound 01/06/18 0000 Signed Impressions: CONCLUSION: 1. Sonographic findings consistent with medical renal disease. No obstruction. 2. Left pleural effusion. Lower Extremity Ultrasound 01/06/18 0000 Signed Impressions: CONCLUSION: No DVT. Objective Remarks GENERAL: AA male, laying in bed, appears comfortable CARDIOVASCULAR: Regular rate and rhythm, +holosystolic murmur over mitral valve RESPIRATORY: Breath sounds equal bilaterally. No accessory muscle use. GASTROINTESTINAL: Abdomen soft, non-tender, nondistended. MUSCULOSKELETAL: moves ext A/P Assessment and Plan In summary this is a 47-year-old male patient with medical history significant for diabetes and hypertension who presented to [place] ER with a chief complaint of blurry vision. Patient was found to have hypertensive emergency. Hypertensive emergency Elevated BPs with elevated troponins and DAVI Continue Procardia 60 mg daily, carvedilol 25 mg twice daily, clonodine prn Echo showing EF 45-50% membranous (intracristal) ventricular septal defect. Lipid panel slightly elevated LDL Cardiology has been consulted (would like patient on ACEI/ARB) Per nephro patient may be on ACEI when BP improved. DAVI (Dr. Valdez following) Likely related to a combination of both underlying hypertension that is uncontrolled Ultrasound with evidence of medical renal disease Elevated creatinine and significant proteinuria, per nephrology likely diabetic nephropathy or possibly hypertensive renal disease but will need to rule out focal segmental glomerulosclerosis or membranous glomerulonephritis since he does have a significant proteinuria. 24-hour urine protein elevated. MRA of kidneys neg for stenosis. Nephrology recommended a kidney biopsy but pt refused stating that he needs rest and knows his body. I had a very long conversation w the patient about the importance of knowing the reason of his kidney failure. I personally spoke w Dr. Valdez over the phone and he would like the kidney function to at least stabilize prior to discharging the patient. Initially the patient wanted to leave AMA and I strongly recommended agains it. Pt finally agreed to remain one more night to monitor his Kidney function. CM was consulted for assistance w d/c planning as pt has no insurance and will need assistance w his meds and f/u outpatient - LE US no DVT - Renal US consistent with medical renal disease - UR random Cr 158, UR random Na 41 Prediabetes A1c 5.7 DVT prophy Patient is ambulatory Discharge Planning Pt agrees to wait until tomorrow with the hopes that his Cr will stabilize. He really wants to go home and give his "body rest" and f/u w nephrology as an outpatient. Discussed w Dr. Valdez. There is concerns of pt's elevated protein levels and a biopsy is really warranted however since pt is refusing, his Cr must at least stabilize prior to d/c and BP's need to be controlled. this has been explained extensively to pt and he stays he will wait until tomorrow to make a decision. Long discussion w pt, coordination of pt care and review of chart >35 mins Joanie Lopez MD Jan 11, 2018 17:06
[2018-01-12] VITALS: BP 157/88; PULSE 81; RESP 17; TEMP 98.3; O2SAT 98
[2018-01-12] MEDS: HEPARIN SODIUM - SQ 10,000 UNITS/ML VIAL SQ SCH ×2 (00:16→09:53)
[2018-01-12 03:57] VITALS: PULSE 85
[2018-01-12 04:00] VITALS: BP 165/82; PULSE 88; RESP 17; TEMP 97.9; O2SAT 95
[2018-01-12] MEDS: hydrALAZINE HCL 25 MG TAB PO SCH (05:23)
[2018-01-12 08:00] VITALS: BP 147/70; PULSE 86; RESP 16; TEMP 98.5; O2SAT 95
[2018-01-12] MEDS: INSULIN ASPART SUPPLEMENTAL SCALE SQ SCH (08:00)
[2018-01-12 08:10] VITALS: PULSE 85
[2018-01-12 08:29] LABS: BICARBONATE 25.2 MEQ/L (21.0-32.0); CALCIUM 8.3 MG/DL (8.5-10.1); CREATININE 1.9 MG/DL (0.60-1.30)
--- NOTE | 2018-01-12 09:39 | HHI.NPPN ---
Subjective Additional Remarks Sitting up on couch. Creatinine has improved at 1.90 today. Wants to be discharged. (Marianela Prince) Review of Systems Respiratory Respiratory Remarks Denies SOB (Marianela Pirnce) Cardiovascular Cardiac Remarks Denies chest pain (Marianela Prince) Gastrointestinal GI Remarks Denies abdominal pain (Marianela Prince) Objective Data Data Vital Signs Date Time Temp Pulse Resp B/P (MAP) Pulse Ox O2 Delivery O2 Flow Rate FiO2 01/12/18 04:00 Room Air 01/12/18 04:00 97.9 88 17 165/82 (109) 95 01/12/18 03:57 85 01/12/18 00:00 98.3 81 17 157/88 (111) 98 01/11/18 23:48 82 01/11/18 21:23 97 01/11/18 21:00 Room Air 01/11/18 20:48 Room Air 01/11/18 20:00 98.7 86 17 152/81 (104) 99 01/11/18 19:46 85 01/11/18 16:00 82 01/11/18 16:00 98.8 83 17 140/74 (96) 98 01/11/18 12:00 77 01/11/18 12:00 98.6 74 17 140/80 (100) 99 (Marianela Prince) -: 01/08/18 0718 01/12/18 0515 Imaging Last Impressions Abdomen Magnetic Resonance Angio 01/08/18 0000 Signed Impressions: CONCLUSION: 1. Normal renal arteries. No stenosis Chest X-Ray 01/06/18 1315 Signed Impressions: CONCLUSION: No acute cardiopulmonary process. Renal Ultrasound 01/06/18 0000 Signed Impressions: CONCLUSION: 1. Sonographic findings consistent with medical renal disease. No obstruction. 2. Left pleural effusion. Lower Extremity Ultrasound 01/06/18 0000 Signed Impressions: CONCLUSION: No DVT. (Marianela Prince) Physical Exam General Appearance: Well Developed, Well Nourished, No Acute Distress (Marianela Prince) Eyes Eye Exam: Pupils Reactive (Marianela Prince) Throat Throat Exam: Oral Mucosa [place] & Moist (Marianela Prince) Neck Neck Exam: Neck Supple (Marianela Prince) Pulmonary Resp Exam: Clear Bilaterally, Breath Sounds Equal, No Distress (Marianela Prince) Cardiology CV Exam: Regular, Normal Sinus Rhythm, Good Perfusion (Marianela Prince) Gastrointestinal/Abdomen GI Exam: Soft, Non-Tender, Bowel Sounds Present (Marianela Prince) Integumentary Skin Exam: Warm, Dry, Intact (Marianela Prince) Extremeties Extremities Exam: Trace Edema (Marianela Prince) Neurologic Neuro Exam: Alert, Awake, Oriented, Speech Clear (Marianela Prince) Psychiatric Psych Exam: Appropriate Responses (Marianela Prince) Assessment/Plan Problem List: (1) DAVI (acute kidney injury) ICD Codes: N17.9 - Acute kidney failure, unspecified Plan: Possible CKD with proteinuria Likely component of CKD due to HTN as well. MARLENA negative, ANCA pending Has significant proteinuria Will need ALBINO or ARB when renal function stabilizes Creatinine improved at 1.99 ->2.18 ->1.90 Avoid nephrotoxins MRA negative for renal artery stenosis BP improved Need to have kidney Biopsy, as has more than 4 gm proteinuria, possibly has FSGS or Membranous GN. D/W the patient, he is refusing the Biopsy. Patient is cleared for discharge per nephrology stand point will need to follow up outpatient. (2) Diabetes ICD Codes: E11.9 - Type 2 diabetes mellitus without complications Status: Acute Plan: Continue to monitor Hgb A1c 5.7 (3) Hypertensive heart disease ICD Codes: I11.9 - Hypertensive heart disease without heart failure Plan: BP improved - continue to monitor. Start ALBINO-I when renal function stable (Marianela Prince) Problem List: (1) DAVI (acute kidney injury) ICD Codes: N17.9 - Acute kidney failure, unspecified Plan: Possible CKD with proteinuria Likely component of CKD due to HTN as well. MARLENA negative, ANCA pending Has significant proteinuria Will need ALBINO or ARB when renal function stabilizes Creatinine improved at 1.99 ->2.18 ->1.90 Avoid nephrotoxins MRA negative for renal artery stenosis BP improved Need to have kidney Biopsy, as has more than 4 gm proteinuria, possibly has FSGS or Membranous GN. D/W the patient, he is refusing the Biopsy. Patient is cleared for discharge per nephrology stand point will need to follow up outpatient. Patient seen and examined, agree with above. Patient refused Biopsy of the kidney. Creatinine is better, for discharge. To follow up with PCP. (2) Diabetes ICD Codes: E11.9 - Type 2 diabetes mellitus without complications Status: Acute Plan: Continue to monitor Hgb A1c 5.7 (3) Hypertensive heart disease ICD Codes: I11.9 - Hypertensive heart disease without heart failure Plan: BP improved - continue to monitor. Start ALBINO-I when renal function stable (Nigel Valdez MD) Problem Qualifiers (1) Diabetes: Qualified Codes: E11.8 - Type 2 diabetes mellitus with unspecified complications Marianela Prince Jan 12, 2018 09:39 Nigel Valdez MD Jan 12, 2018 21:32
[2018-01-12] MEDS: CARVEDILOL 12.5 MG TAB PO SCH (09:54)
[2018-01-12] MEDS: SODIUM CHLORIDE 0.9% FLUSH 10 ML FLUSH IV FLUSH SCH (09:54)
[2018-01-12] MEDS: NIFEdipine 60 MG SUSTAINED RELEASE TAB PO SCH (09:54)
[2018-01-12] MEDS ORDERED: NIFE60TA8 PO (11:00)
[2018-01-12] MEDS ORDERED: CARV12.5 PO (11:00)
[2018-01-12] MEDS ORDERED: HYDR-3799 PO (11:00)
--- NOTE | 2018-01-12 11:00 | HHI.DCPOC ---
Discharge Care Plan Diagnosis: (1) Hypertensive emergency (2) Hypertensive heart disease (3) Ventricular septal defect (VSD), membranous (4) DAVI (acute kidney injury) Goals to Promote Your Health * To prevent worsening of your condition and complications * To maintain your health at the optimal level Directions to Meet Your Goals Take your medications as prescribed Follow your dietary instruction Follow activity as directed Keep your appointments as scheduled Take your immunizations and boosters as scheduled If your symptoms worsen call your PCP, if no PCP go to Urgent Care Center or Emergency Room Smoking is Dangerous to Your Health. Avoid second hand smoke Call the 24-hour hour crisis hotline for domestic abuse at Rey Richardson MD Jan 12, 2018 11:00
--- NOTE | 2018-01-12 11:02 | HHI.DS ---
Discharge Summary Admission Date Jan 06, 2018 at 15:00 Discharge Date: Jan 12, 2018 Admitting Diagnosis hypertensive emergency, positive troponin, NSTEMI? (1) Hypertensive emergency ICD Code: I16.1 - Hypertensive emergency Status: Acute (2) Hypertensive heart disease ICD Code: I11.9 - Hypertensive heart disease without heart failure (3) DAVI (acute kidney injury) ICD Code: N17.9 - Acute kidney failure, unspecified Procedures None Brief History - From Admission HPI from the admitting physician The patient is a 47-year-old male the past medical history of diabetes and hypertension who is presenting to the hospital with vision changes. He says for the past month or so he has experienced blurry vision, worse in the left eye. He says his right eye has been acting up over the past 2 days. He denies any associated headaches. He went to an eye doctor yesterday who diagnosed him with diabetic retinopathy. He went to an urgent care clinic today who referred him to the hospital for further evaluation. The patient's blood pressure has been very high while he was in the doctor's offices. He has been on blood pressure medications in the past including lisinopril and hydrochlorothiazide. He has also been on diabetic medication in the past. The patient states his legs have been swollen for the past 2 weeks. He says it has happened to him in the past as well. He denies any chest pain or shortness of breath. He does endorse feeling tired when he undergoes activities. He says he has had a heart murmur since childhood. He says he does not typically see doctors. He has not been taking any medications recently. He said the urgent care also diagnosed him with a sinusitis. CBC/BMP: 01/08/18 0718 01/12/18 0515 Significant Findings Laboratory Tests Test 01/09/18 15:24 01/10/18 11:00 01/11/18 07:30 01/12/18 05:15 Urine Total Protein 24 Hour 4378 MG/24HR (0-150) Blood Urea Nitrogen 26 MG/DL (7-18) 29 MG/DL (7-18) 31 MG/DL (7-18) Creatinine 1.99 MG/DL (0.60-1.30) 2.18 MG/DL (0.60-1.30) 1.90 MG/DL (0.60-1.30) Random Glucose 133 MG/DL (74-106) 126 MG/DL (74-106) Chloride Level 108 MEQ/L (98-107) 108 MEQ/L (98-107) 109 MEQ/L (98-107) Estimat Glomerular Filtration Rate 44 ML/MIN (>89) 39 ML/MIN (>89) 46 ML/MIN (>89) Calcium Level 8.1 MG/DL (8.5-10.1) 8.3 MG/DL (8.5-10.1) Imaging Last Impressions Abdomen Magnetic Resonance Angio 01/08/18 0000 Signed Impressions: CONCLUSION: 1. Normal renal arteries. No stenosis Chest X-Ray 01/06/18 1315 Signed Impressions: CONCLUSION: No acute cardiopulmonary process. Renal Ultrasound 01/06/18 0000 Signed Impressions: CONCLUSION: 1. Sonographic findings consistent with medical renal disease. No obstruction. 2. Left pleural effusion. Lower Extremity Ultrasound 01/06/18 0000 Signed Impressions: CONCLUSION: No DVT. PE at Discharge GENERAL: AA male, laying in bed, appears comfortable CARDIOVASCULAR: Regular rate and rhythm, +holosystolic murmur over mitral valve RESPIRATORY: Breath sounds equal bilaterally. No accessory muscle use. GASTROINTESTINAL: Abdomen soft, non-tender, nondistended. MUSCULOSKELETAL: moves ext Pt update on day of discharge Great. He is requesting to go home. States he will follow-up outpatient with Dr. Méndez. Hospital Course In summary this is a 47-year-old male patient with medical history significant for diabetes and hypertension who presented to [place] ER with a chief complaint of blurry vision. Patient was found to have hypertensive emergency. Treatment course detailed below: Hypertensive emergency Elevated BPs with elevated troponins and DAVI Continue Procardia 60 mg daily, carvedilol 25 mg twice daily, clonodine prn Echo showing EF 45-50% membranous (intracristal) ventricular septal defect. Lipid panel slightly elevated LDL Cardiology has been consulted (would like patient on ACEI/ARB) Per nephro patient may be on ACEI when BP improved. He will follow-up outpatient for further titration of medications and initiation of ALBINO inhibitor. DAVI (Dr. Méndez following) Likely related to a combination of both underlying hypertension that is uncontrolled Ultrasound with evidence of medical renal disease Elevated creatinine and significant proteinuria, per nephrology likely diabetic nephropathy or possibly hypertensive renal disease but will need to rule out focal segmental glomerulosclerosis or membranous glomerulonephritis since he does have a significant proteinuria. 24-hour urine protein elevated. MRA of kidneys neg for stenosis. Nephrology recommended a kidney biopsy but pt refused. He states he will follow-up outpatient. - LE US no DVT - Renal US consistent with medical renal disease - UR random Cr 158, UR random Na 41 Prediabetes A1c 5.7 Patient counseled on low-carb diet. Pt Condition on Discharge: Good Discharge Disposition: Discharge Home Discharge Time: <= 30 minutes Discharge Instructions DIET: Follow Instructions for: Heart Healthy Diet Activities you can perform: Regular-No Restrictions Follow up Referrals: Appointment for Follow Up @ NEPHROLOGY with RICHARD MÉNDEZ Nephrology - 2 Weeks with Nigel Méndez MD New Medications: Carvedilol (Coreg) 12.5 Mg Tab 25 MG PO Q12HR, #60 TAB Hydralazine HCl (Hydralazine HCl) 25 Mg Tablet 25 MG PO Q8HR, #90 TAB Nifedipine ER 24 HR (Nifedipine ER 24 HR) 60 Mg Tab 60 MG PO DAILY, #30 TAB Rey Richardson MD Jan 12, 2018 11:02
== END 2018-01-12 12:06 | disposition home or self-care (01) | DRG 305 ==
LOC: NEPE 12:46 → NEDA 15:00 → N04B 17:11
PROVIDERS: ADMIT Family Medicine; ATTEND Family Medicine
DX: I16.1 Hypertensive emergency (principal); N17.9 Acute kidney failure, unspecified; J90 Pleural effusion, not elsewhere classified; Q21.0 Ventricular septal defect; E11.65 Type 2 diabetes mellitus with hyperglycemia; E11.21 Type 2 diabetes mellitus with diabetic nephropathy; E11.319 Type 2 diabetes mellitus with unspecified diabetic retinopathy without macular edema; E87.6 Hypokalemia; I13.10 Hypertensive heart and chronic kidney disease without heart failure, with stage 1 through stage 4 chronic kidney disease, or unspecified chronic kidney disease; E11.22 Type 2 diabetes mellitus with diabetic chronic kidney disease; N18.9 Chronic kidney disease, unspecified; R74.8 Abnormal levels of other serum enzymes; Z53.29 Procedure and treatment not carried out because of patient's decision for other reasons; Z82.49 Family history of ischemic heart disease and other diseases of the circulatory system; Z83.3 Family history of diabetes mellitus; Z91.14 Patient's other noncompliance with medication regimen
CPT/HCPCS: 71045; 76775; 80048; 80053; 80061; 81001; 82550; 82552; 82570; 82948; 83036; 83735; 83880; 84100; 84157; 84300; 84439; 84443; 84484; 85025; 86021; 86038; 93005; 93306; 93970; 96374; A9579; C8900; J1644; J1815